=== PATIENT | male | born 1960 | race Caucasian/White ===

== ENCOUNTER 2017-06-06 02:43 | Inpatient (IN) | payer OTHER, MEDICAID ==
[2017-06-06] VITALS (8 sets, daily range): BP systolic 114–142; BP diastolic 60–82; PULSE 77–92; RESP 19–20; Ht 157.5 cm; Wt 68.7 kg
[~2017-06-06] VITALS: Ht 157.5 cm; Wt 68.7 kg
[~2017-06-06 02:43] MED LIST: ASPI-676; METF500T4; SIMV20TA2
[2017-06-06] MEDS ORDERED: NITROGLYCERIN 2% 1 GM OINT PKT TD STA (02:52)
[2017-06-06] MEDS ORDERED: ASPIRIN 81 MG TAB PO STA (02:52)
[2017-06-06] MEDS ORDERED: SOD CHLORIDE 0.9% 1,000 ML IV STA (02:52)
[2017-06-06] MEDS ORDERED: NITROGLYCERIN (SL) 0.4 MG TAB SL PRN ×2 (03:00→07:00)
[2017-06-06] MEDS ORDERED: LORAZEPAM 2 MG INJ ONE (03:22)
[2017-06-06] MEDS ORDERED: LORAZEPAM 2 MG INJ IV ONE (03:30)
[2017-06-06 03:32] LABS: BASOPHILS % 0.4 % (0.0-2.0); EOSINOPHILS # 0.2 10^3/ul (0.0-0.5); EOSINOPHILS % 1.9 % (0.0-7.0); HEMATOCRIT 41.2 % (42.0-52.0); HEMOGLOBIN 14.1 g/dl (14.0-18.0); LYMPHOCYTES # 4.7 10^3/ul (0.8-2.9); LYMPHOCYTES % 49.7 % (15.0-51.0); MEAN CORPUSCULAR HEMOGLOBIN 30.3 pg (29.0-33.0); MEAN CORPUSCULAR HGB CONC 34.2 g/dl (32.0-37.0); MEAN CORPUSCULAR VOLUME 88.4 fl (82.0-101.0); MEAN PLATELET VOLUME 9.3 fl (7.4-10.4); MONOCYTE # 0.7 10^3/ul (0.3-0.9); MONOCYTES % 7.1 % (0.0-11.0); NEUTROPHIL # 3.9 10^3/ul (1.6-7.5); NEUTROPHILS % 40.7 % (39.0-77.0); PLATELET COUNT 232 10^3/UL (140-415); RED BLOOD COUNT 4.66 10^6/ul (4.70-6.10); RED CELL DISTRIBUTION WIDTH 13.2 % (11.5-14.5); WHITE BLOOD COUNT 9.5 10^3/ul (4.8-10.8)
--- NOTE | 2017-06-06 03:50 | RADRPT ---
PROCEDURE: Chest. CLINICAL INDICATION: Chest pain. TECHNIQUE: Single frontal view of the chest was obtained. COMPARISON: 02/22/2013. FINDINGS: The cardiac silhouette is magnified. The aortic arch is calcified. There are increased interstitia l markings bilaterally. There is no pleural effusion. There is no pneumothorax. IMPRESSION: Bilateral increased interstitial markings could represent interstitial edema or chronic lung changes . Aortic atherosclerosis. .Roshan Clark MD, MD Date Time Electronically viewed and signed by .Roshan Clark MD, on 06/06/2017 03:49 .T/
[2017-06-06 03:54] LABS: INR 0.94; PARTIAL THROMBOPLASTIN TIME 25.3 Sec (25.0-35.0); PROTIME 12.6 Sec (12.2-14.2)
[2017-06-06 05:14] LABS: ANION GAP 26 (8-16); BLOOD UREA NITROGEN 21 mg/dl (7-20); CALCIUM 9.9 mg/dl (8.4-10.2); CARBON DIOXIDE 22 mmol/L (21-31); CHLORIDE 101 mmol/L (97-110); CREATININE 0.75 mg/dl (0.61-1.24); GLUCOSE 355 mg/dl (70-220); SODIUM 145 mmol/L (135-144)
--- NOTE | 2017-06-06 05:38 | ERA ---
ER Documentation Chief Complaint Date/Time DATE: 06/06/17 TIME: 05:35 Chief Complaint BEBA RA90 from home, palpitations, SOB HPI Patient is a 56-year-old male with seizures and diabetes who presents with shortness of breath and chest pain. He also has palpitations. It started 1 hour prior to arrival. The patient was brought in by ambulance. He did have a headache as well. Upon review of old medical records this is the patient's fourth visit to the ER since 2008. His primary doctor is Dr. Rivera. He was brought in by ambulance. ROS All systems reviewed and are negative except as per history of present illness. Medications Home Meds Reported Medications Simvastatin (Simvastatin) 20 Mg Tablet 02/22/13 Metformin* (Glucophage*) 500 Mg Tab 02/22/13 Metformin* (Glucophage*) 500 Mg Tab 02/22/13 Aspirin (Gaetano Child) 81 Mg Chew, daily 02/22/13 Allergies Allergies: Coded Allergies: No Known Allergy (Unverified , 03/05/14) PMhx/Soc History of Surgery: Yes (Toe amputation) Anesthesia Reaction: No Hx Neurological Disorder: No Hx Respiratory Disorders: No Hx Cardiac Disorders: No Hx Psychiatric Problems: No Hx Miscellaneous Medical Probl: Yes (diabetes, cholesterol, HTN.) Hx Alcohol Use: No Hx Substance Use: No Hx Tobacco Use: No FmHx Family History: No coronary disease Physical Exam Vitals Vital Signs Date Time Temp Pulse Resp B/P Pulse Ox O2 Delivery O2 Flow Rate FiO2 06/06/17 05:08 101 20 110/80 96 Nasal Cannula 06/06/17 03:55 116 27 111/67 99 Nasal Cannula 2.0 06/06/17 03:31 105 23 111/67 96 Nasal Cannula 2.0 06/06/17 03:31 Nasal Cannula 2 06/06/17 02:46 98.4 123 18 193/93 98 Physical Exam Const: Mild distress Head: Atraumatic Eyes: Normal Conjunctiva ENT: Normal External Ears, Nose and Mouth. Neck: Full range of motion..~ No meningismus. Resp: Clear to auscultation bilaterally Cardio: Regular rate and rhythm, no murmurs Abd: Soft, non tender, non distended. Normal bowel sounds Skin: No petechiae or rashes Back: No midline or flank tenderness Ext: No cyanosis, or edema Neur: Awake and alert, cranial nerves II through XII intact, strength is 5 out of 5 in all 4 extremities Psych: Normal Mood and Affect Result Diagram: 06/06/1730906/06/17309 Results 24 hrs Laboratory Tests Test 06/06/17 03:10 White Blood Count 9.510^3/ul Red Blood Count 4.6610^6/ul Hemoglobin 14.1g/dl Hematocrit 41.2% Mean Corpuscular Volume 88.4fl Mean Corpuscular Hemoglobin 30.3pg Mean Corpuscular Hemoglobin Concent 34.2g/dl Red Cell Distribution Width 13.2% Platelet Count 40741^3/UL Mean Platelet Volume 9.3fl Neutrophils % 40.7% Lymphocytes % 49.7% Monocytes % 7.1% Eosinophils % 1.9% Basophils % 0.4% Nucleated Red Blood Cells % 0.0/100WBC Neutrophils # 3.910^3/ul Lymphocytes # 4.710^3/ul Monocytes # 0.710^3/ul Eosinophils # 0.210^3/ul Basophils # 0.010^3/ul Nucleated Red Blood Cells # 0.010^3/ul Prothrombin Time 12.6Sec Prothrombin Time Ratio 1.0 INR International Normalized Ratio 0.94 Activated Partial Thromboplast Time 25.3Sec Sodium Level 145mmol/L Potassium Level 4.0mmol/L Chloride Level 101mmol/L Carbon Dioxide Level 22mmol/L Anion Gap 26 Blood Urea Nitrogen 21mg/dl Creatinine 0.75mg/dl Glucose Level 355mg/dl Calcium Level 9.9mg/dl Troponin I Pending Phenytoin (Dilantin) Level < 3.0ug/ml Current Medications Medications (Trade) Dose Ordered Sig/Tigre Route PRN Reason Start Time Stop Time Status Last Admin Dose Admin Sodium Chloride (NS) 1,000 ml @ 1,000 mls/hr Q1H STAT IV 06/06/17 02:52 06/06/17 03:51 DC 06/06/17 03:20 Aspirin (Aspirin) 162 mg ONCE STAT PO 06/06/17 02:52 06/06/17 02:53 DC 06/06/17 03:20 Nitroglycerin (Nitroglycerin 2% Oint) 1 inch ONCE STAT TD 06/06/17 02:52 06/06/17 02:53 DC 06/06/17 03:20 Nitroglycerin (Nitroglycerin (Sl Tab) 0.4 Mg) 1 tab Q5M UP TO 3 DOSES PRN SL CHEST PAIN 06/06/17 03:00 06/06/17 03:20 Lorazepam (Ativan) 2 mg ONCE ONCE IV 06/06/17 03:30 06/06/17 03:31 DC 06/06/17 03:25 Lorazepam (Ativan) 2 mg STK-MED ONCE .ROUTE 06/06/17 03:22 06/06/17 03:23 DC Procedures/MDM EKG #1 read by me: Rate/Rhythm: Sinus tachycardia rate of 116 Intervals: Normal Impression: Sinus tachycardia without ischemia EKG #2 read by me: Rate/Rhythm: Regular rate and rhythm at a rate of 102 Intervals: Normal Impression: Sinus tachycardia without ischemia PROCEDURE: Chest. CLINICAL INDICATION: Chest pain. TECHNIQUE: Single frontal view of the chest was obtained. COMPARISON: 02/22/2013. FINDINGS: The cardiac silhouette is magnified. The aortic arch is calcified. There are increased interstitial markings bilaterally. There is no pleural effusion. There is no pneumothorax. IMPRESSION: Bilateral increased interstitial markings could represent interstitial edema or chronic lung changes. Aortic atherosclerosis. .Roshan Clark MD, MD Date Time Electronically viewed and signed by .Roshan Clark MD, MD on 06/06/2017 03:49 Patient is a 56-year-old male who presents with chest pain shortness of breath as well as palpitations. Given his diabetes and age I did want to admit him to the hospital for acute coronary syndrome. He will need to be admitted to the panel team. The patient had elevated glucose of 355 in the emergency department. The patient also had a seizure while in the emergency department and was given 2 mg of IV Ativan to stop the seizure. He has a history of seizures as well. The patient will be admitted to a telemetry bed. Departure Diagnosis: Primary Impression: Chest pain Qualified Code: R07.9 - Chest pain, unspecified type Additional Impression: Seizure Condition: CASS Lira MD Jun 06, 2017 05:38
[2017-06-06 05:40] LABS: TROPONIN-I < 0.012 ng/ml (0.00-0.12)
[2017-06-06] MEDS ORDERED: ONDANSETRON 4 MG INJ IV PRN ×2 (06:00→07:00)
[2017-06-06] MEDS ORDERED: ACETAMINOPHEN 325 MG TAB PO PRN ×2 (06:00→07:00)
[2017-06-06] MEDS ORDERED: LORAZEPAM 2 MG INJ IV PRN ×2 (07:00→12:30)
[2017-06-06] MEDS ORDERED: BISACODYL (EC) 5 MG TAB PO PRN (07:00)
[2017-06-06] MEDS ORDERED: NACL 0.9% 3 ML SYG IV SCH (07:00)
[2017-06-06] MEDS ORDERED: DOCUSATE SODIUM 100 MG CAP PO PRN (07:00)
[2017-06-06] MEDS ORDERED: morphine 2 MG INJ IV PRN (07:00)
[2017-06-06] MEDS ORDERED: hydrALAzine 20 MG INJ IV PRN (09:00)
[2017-06-06] MEDS: ASPIRIN 81 MG TAB PO SCH (09:58)
[2017-06-06 10:06] LABS: TROPONIN-I 0.034 ng/ml (0.00-0.12)
[2017-06-06] MEDS: INSULIN ASPART [NOVOLOG] 3 ML PEN SC SCH ×4 (10:07→22:18)
[2017-06-06 10:23] LABS: CK-MB 1.36 ng/ml (0.0-2.4)
[2017-06-06] MEDS ORDERED: GLUCOSE GEL 15 GRAM TUBE PO PRN ×2 (12:30)
[2017-06-06] MEDS ORDERED: GLUCOSE GEL 15 GRAM TUBE BUCCAL PRN (12:30)
[2017-06-06] MEDS ORDERED: DEXTROSE 50% 50 ML SYRINGE IV PRN ×2 (12:30)
[2017-06-06] MEDS ORDERED: GLUCAGON 1 MG INJ IM PRN (12:30)
[2017-06-06] MEDS ORDERED: ATOR10TA65 PO (12:32)
[2017-06-06] MEDS ORDERED: ASPI81TA3 PO (12:32)
[2017-06-06] MEDS ORDERED: SITA1TAB PO (12:32)
[2017-06-06] MEDS ORDERED: LEVE500S8 PO (12:32)
[2017-06-06] MEDS ORDERED: PHEN200C3 PO (12:32)
[2017-06-06] MEDS ORDERED: DONE10TA7 PO (12:32)
--- NOTE | 2017-06-06 12:44 | CONS ---
Date/Time of Note Date/Time of Note DATE: 06/06/17 TIME: 12:36 Assessment/Plan Assessment/Plan Chief Complaint/Hosp Course 56 yo male with history of seizure d/o on Keppra 1500 mg BID and Dilantin 200 mg ER BID presents with breakthrough seizures. Recommendations: MRI Brain w/o contrast temporal lobe cuts continue Keppra 1500 mg BID, Dilantin 200 mg ER BID level is <3.0 patient is likely non-compliant with medications would recommend load of Fosphenytoin 1 gram x1 and continue current home dose infectious work up, maintain euglycemia, normotension will follow Problems: Consultation Date/Type/Reason Admit Date/Time Jun 06, 2017 at 05:48 Date of Consultation: Jun 06, 2017 Type of Consultation: Neurology Reason for Consultation eval for seizures Hx of Present Illness 56 yo male admitted with seizure activity, poor historian and unable to provide list of home medications or provide further history regarding seizures. Keppra seizure prophylaxis was initiated. No prior records available. Pills available: Dilantin 200 mg ER BID Keppra 1500 mg BID Sodium: 145 Glucose 355 on admission CK: 49 Exam/Review of Systems Vital Signs Vitals Vital Signs Date Time Temp Pulse Resp B/P Pulse Ox O2 Delivery O2 Flow Rate FiO2 06/06/17 12:30 92 06/06/17 11:48 98.2 20 121/60 97 06/06/17 07:28 Nasal Cannula 2.0 Exam awake and alert oriented to self, date not to hospital CN: ARACELIS, VFF, EOMI left facial asymmetry palate upgoing, right lateral tongue bite Motor: 5/5 UE and LE no drift in extremities Tone wnl Coordination no ataxia Reflexes 2+ throughout Results Result Diagram: 06/06/17 0310 06/06/17 0310 Results 24 hrs Laboratory Tests Test 06/06/17 03:10 06/06/17 09:15 06/06/17 10:04 06/06/17 12:16 White Blood Count 9.5 Red Blood Count 4.66 L Hemoglobin 14.1 Hematocrit 41.2 L Mean Corpuscular Volume 88.4 Mean Corpuscular Hemoglobin 30.3 Mean Corpuscular Hemoglobin Concent 34.2 Red Cell Distribution Width 13.2 Platelet Count 232 Mean Platelet Volume 9.3 Neutrophils % 40.7 Lymphocytes % 49.7 Monocytes % 7.1 Eosinophils % 1.9 Basophils % 0.4 Nucleated Red Blood Cells % 0.0 Neutrophils # 3.9 Lymphocytes # 4.7 H Monocytes # 0.7 Eosinophils # 0.2 Basophils # 0.0 Nucleated Red Blood Cells # 0.0 Prothrombin Time 12.6 Prothrombin Time Ratio 1.0 INR International Normalized Ratio 0.94 Activated Partial Thromboplast Time 25.3 Sodium Level 145 H Potassium Level 4.0 Chloride Level 101 Carbon Dioxide Level 22 Anion Gap 26 H Blood Urea Nitrogen 21 H Creatinine 0.75 Glucose Level 355 H Calcium Level 9.9 Troponin I < 0.012 0.034 Phenytoin (Dilantin) Level < 3.0 L Creatine Kinase 49 Creatine Kinase Index 2.8 Creatinine Kinase MB (Mass) 1.36 Bedside Glucose 226 H 203 Medications Medications Current Medications Diagnostic Test (Pha) (Accu-Chek) XX ; Start 06/07/17 at 02:00 Ondansetron HCl (Zofran Inj) 4 mg Q6H PRN IV NAUSEA AND/OR VOMITING; Start at 07:00 Nitroglycerin (Nitroglycerin (Sl Tab) 0.4 Mg) 1 tab Q5M PRN SL CHEST PAIN; Start 06/06/17 at 07:00 Acetaminophen (Tylenol Tab) 650 mg Q6H PRN PO PAIN LEVEL 1-3 OR FEVER; Start at 07:00 Morphine Sulfate (morphine) 2 mg Q4H PRN IV PAIN LEVEL 7-10; Start 06/06/17 at 07:00 Docusate Sodium (Colace) 100 mg Q12H PRN PO CONSTIPATION; Start 06/06/17 at 07: 00 Bisacodyl (Dulcolax) 5 mg DAILY PRN PO CONSTIPATION; Start 06/06/17 at 07:00 Pantoprazole (Protonix Iv) 40 mg DAILY@06 IV ; Start 06/07/17 at 06:00 Aspirin (Aspirin) 81 mg DAILY PO Last administered on 06/06/17t 09:58; Admin Dose 81 MG; Start 06/06/17 at 09:00 Hydralazine HCl (Apresoline) 10 mg Q6H PRN IV SBP>160; Start 06/06/17 at 09:00 Atorvastatin Calcium 20 mg 20 mg HS PO ; Start 06/06/17 at 21:00 Levetiracetam (Keppra 1,000mg/ 100ml (Pmx)) 100 ml @ 400 mls/hr Q12 IVPB ; Start 06/06/17 at 13:30 Lorazepam (Ativan) 1 mg Q2H PRN IV seizure; Start 06/06/17 at 12:30 Miscellaneous Information 1 ea NOTE XX ; Start 06/06/17 at 12:30 Glucose (Glutose) 15 gm Q15M PRN PO DECREASED GLUCOSE; Start 06/06/17 at 12:30 Glucose (Glutose) 22.5 gm Q15M PRN PO DECREASED GLUCOSE; Start 06/06/17 at 12: 30 Dextrose (D50w Syringe) 25 ml Q15M PRN IV DECREASED GLUCOSE; Start 06/06/17 at 12:30 Dextrose (D50w Syringe) 50 ml Q15M PRN IV DECREASED GLUCOSE; Start 06/06/17 at 12:30 Glucagon (Glucagen) 1 mg Q15M PRN IM DECREASED GLUCOSE; Start 06/06/17 at 12:30 Glucose (Glutose) 15 gm Q15M PRN BUCCAL DECREASED GLUCOSE; Start 06/06/17 at 12 :30 RENETTA TILLMAN MD Jun 06, 2017 12:44
[2017-06-06] MEDS ORDERED: FOSPHENYTOIN (PE) 1,000 MG in SOD CHLORIDE 0.9% 80 ML IVPB STA (12:50)
[2017-06-06] MEDS: LEVETIRACETAM 1000 MG (PMX) 100 ML IVPB SCH ×2 (14:22→22:16)
--- NOTE | 2017-06-06 15:34 | RADRPT ---
PROCEDURE: MR Brain without contrast. CLINICAL INDICATION: Seizures TECHNIQUE: A high resolution MRI of the brain was performed utilizing the following sequences: Sag ittal and axial T1 weighted, axial T2 weighted, axial FLAIR, coronal GRE, and axial diffusion weight ed with ADC mapping. Images were reviewed high-resolution PACS workstation. Coronal FLAIR and T1 3D SPGR sequences were also acquired. COMPARISON: None FINDINGS: No acute parenchymal hemorrhage, significant mass effect, or midline shift. No evidence of recent in farct. Scattered subcortical, deep, and periventricular white matter T2-weighted/FLAIR hyperintensi ties are nonspecific. The mesial temporal lobes demonstrate normal signal intensity and volume bilaterally. No evidence o f focal cortical thickening or indistinctness is identified. No evidence of focal cortical encephal omalacia. The ventricles are normal in size for age. Normal flow voids are visible in the proximal intracrania l arteries suggesting their patency. Mild paranasal sinus mucosal thickening. IMPRESSION: No acute intracranial abnormality or evidence of recent infarct. No evidence of mesial temporal sclerosis, cortical dysplasia or cortical encephalomalacia. If there remains suspicion for an epileptogenic focus, consider outpatient interictal PET imaging for furthe r evaluation. A few scattered signal changes in the cerebral white matter are nonspecific but may represent post t raumatic/post inflammatory change, a sequela of chronic headaches, microvascular disease, or other e tiologies. RPTAT: AA .Babar Christian MD, MD Date Time Electronically viewed and signed by .Babar Christian MD, MD on 06/06/2017 15:33 .T/
[2017-06-06 16:43] LABS: CREATINE KINASE 56 IU/L (23-200)
[2017-06-06 16:57] LABS: CK-MB 1.25 ng/ml (0.0-2.4); TROPONIN-I < 0.012 ng/ml (0.00-0.12)
[2017-06-06] MEDS ORDERED: ATORVASTATIN 20 MG TAB PO SCH (21:00)
[2017-06-06] MEDS ORDERED: FAMOTIDINE 20 MG TAB PO SCH (21:00)
[2017-06-06] MEDS: PHENYTOIN 100 MG CAP PO SCH (22:16)
--- NOTE | 2017-06-06 22:21 | RADRPT ---
Echocardiogram Report Patient Name: SALEEM TOVAR Gender: Male Date: 1960 Study Date: 06-Jun-2017 Business Test Analyst: Janelle Bradshaw [facility] Location: 5547 Ref. Physician: KEENA LUCERO Quality: Good Procedures: Transthoracic echocardiogram with complete 2D, M-Mode, and doppler examination. Indications: Chest Pain. 2D/M Mode Doppler Measurement Value Normal Ranges Measurement Value Normal Ranges LVIDd 2D 3.0 3.5 - 5.6 cm AV Peak [place] 1.2 m/sec LVIDs 2D 1.5 2.1 - 4.1 cm AV Peak PG 6.1 mmHg LVPWd 2D 1.4 0.6 - 1.1 cm LVOT Peak [place] 1.0 m/sec IVSd 2D 1.4 0.6 - 1.1 cm LVOT Peak PG 4.2 mmHg AoR Diam 2D 3.3 2.0 - 3.7 cm MV E Peak P[place]co 0.8 m/sec EDV 2D 33.9 cm3 MV A Peak [place] 0.7 m/sec ESV 2D 3.3 cm3 MV E/A 1.0 LA Dimen 2D 3.3 2.3 - 4.0 cm MV Decel Time 266 msec MV Decel [place] 3 MV E/A 1.0 TR Peak Pacheco 2.2 m/sec TR Peak PG 20.0 mmHg Findings Left Ventricle: Normal left ventricular systolic function. Normal left ventricular cavity size. Moderate concentric left ventricular hypertrophy. Ejection fraction is visually estimated at 65 %. Abnormal Diastolic Function. Right Ventricle: Normal right ventricular size. Normal right ventricular systolic function. Left Atrium: The left atrium is normal in size. Right Atrium: The right atrium is normal in size. Mitral Valve: Normal appearance of the mitral valve. Trace mitral regurgitation. Aortic Valve: Normal appearance of the aortic valve. No significant aortic stenosis or insufficiency. Tricuspid Valve: Normal appearance of the tricuspid valve. There is trace tricuspid regurgitation. Pulmonic Valve: Normal pulmonic valve appearance. Pericardium: Normal pericardium with no significant pericardial effusion. Aorta: Normal aortic root. IVC: Normal size and normal respiratory collapse consistent with normal right atrial pressure. Pulmonary Artery: Normal pulmonary artery size. Conclusions Normal left ventricular systolic function. Normal left ventricular cavity size. Moderate concentric left ventricular hypertrophy. Ejection fraction is visually estimated at 65 %. Abnormal Diastolic Function. Normal right ventricular size. Normal right ventricular systolic function. The left atrium is normal in size. The right atrium is normal in size. No significant valvular stenosis or regurgitation seen. Normal pericardium with no significant pericardial effusion. Electronically Signed By: Iain Stanford 06-Jun-2017 22:20:36 -0700 Patient Name: SALEEM TOVAR Study Date: 06-Jun-2017 [id number]
[2017-06-07] VITALS (10 sets, daily range): BP systolic 113–136; BP diastolic 59–78; PULSE 66–77; RESP 17–18
[2017-06-07] MEDS ORDERED: ACCU-CHEK XX SCH (02:00)
[2017-06-07] MEDS ORDERED: INSULIN ASPART [NOVOLOG] 3 ML PEN SC STA (02:14)
[2017-06-07] MEDS: morphine 4 MG/ML VIAL IV PRN ×2 (02:32→03:59)
[2017-06-07] MEDS ORDERED: PANTOPRAZOLE 40 MG INJ IV SCH (06:00)
[2017-06-07 08:16] LABS: BASOPHILS % 0.3 % (0.0-2.0); EOSINOPHILS # 0.1 10^3/ul (0.0-0.5); EOSINOPHILS % 1.1 % (0.0-7.0); HEMATOCRIT 37.3 % (42.0-52.0); LYMPHOCYTES # 1.9 10^3/ul (0.8-2.9); LYMPHOCYTES % 30.4 % (15.0-51.0); MEAN CORPUSCULAR HEMOGLOBIN 30.7 pg (29.0-33.0); MEAN CORPUSCULAR HGB CONC 34.9 g/dl (32.0-37.0); MEAN PLATELET VOLUME 9.5 fl (7.4-10.4); MONOCYTE # 0.5 10^3/ul (0.3-0.9); MONOCYTES % 8.4 % (0.0-11.0); NEUTROPHIL # 3.8 10^3/ul (1.6-7.5); NEUTROPHILS % 59.6 % (39.0-77.0); PLATELET COUNT 210 10^3/UL (140-415); RED BLOOD COUNT 4.24 10^6/ul (4.70-6.10); RED CELL DISTRIBUTION WIDTH 13.1 % (11.5-14.5); WHITE BLOOD COUNT 6.3 10^3/ul (4.8-10.8)
--- NOTE | 2017-06-07 08:19 | RADRPT ---
PROCEDURE: CT Brain without. CLINICAL INDICATION: Seizure. TECHNIQUE: A CT of the brain was performed on multidetector high-resolution CT scanner utilizing a xial sections from the skull base through the vertex without contrast. The scan was reviewed in sof t tissue brain and high frequency resolution bone algorithm windows. Images were reviewed on a high -resolution PACS workstation. One or more the following does reduction techniques were utilized: Aut omated exposure control, adjustment of the mA/ or kV according to patient's size, or use of iterativ e reconstruction technique. The exam CTDI = 43.48 mGy and the DLP = 810.25 mGy-cm. COMPARISON: Brain MRI 06/06/2017. FINDINGS: The ventricles and sulci are mildly prominent indicative of volume loss. Mild prominence of temporal horn of the right lateral ventricle is noted. There is no intracranial hemorrhage, mass effect or m idline shift. No abnormal intra-axial or extra-axial fluid collections are seen. The gayle/white mat ter differentiation is preserved. There are mild scattered foci of hypoattenuation in the white matter, which are nonspecific in etiol ogy but likely reflect chronic small vessel ischemic changes. There are mild intracranial vascular calcifications consistent with atherosclerosis. The visualized paranasal sinuses demonstrate mild sc attered mucosal thickening mainly in ethmoid air cells and maxillary sinuses. The left mastoid air c ells are underpneumatized. The right mastoid air cells are essentially clear. IMPRESSION: 1. No acute intracranial hemorrhage, transcortical infarction or mass effect. 2. Mild intracranial atherosclerosis. Mild white matter hypoattenuation foci which likely represen t chronic small vessel ischemic changes. 3. Mild generalized cerebral volume loss. RPTAT: UU .Tigist Hernandez MD, MD Date Time Electronically viewed and signed by .Tigist Hernandez MD, MD on 06/07/2017 08:19 .N/
[2017-06-07] MEDS: ASPIRIN 81 MG TAB PO SCH (08:29)
[2017-06-07] MEDS: PHENYTOIN 100 MG CAP PO SCH (08:30)
[2017-06-07] MEDS: INSULIN ASPART [NOVOLOG] 3 ML PEN SC SCH ×2 (08:34→12:30)
[2017-06-07 08:41] LABS: ALBUMIN/GLOBULIN RATIO 1.37; BILIRUBIN,INDIRECT 0.1 mg/dl (0-1.1); BILIRUBIN,TOTAL 0.1 mg/dl (0.2-1.3); CALCIUM 8.9 mg/dl (8.4-10.2); CHOL/HDL RATIO 4.8 RATIO; CREATININE 0.66 mg/dl (0.61-1.24); MAGNESIUM 1.7 mg/dl (1.7-2.5); POTASSIUM 4.3 mmol/L (3.5-5.1); TOTAL PROTEIN 6.9 g/dl (6.1-8.1)
[2017-06-07] MEDS ORDERED: LINAGLIPTIN 5 MG TABLET PO SCH (09:00)
[2017-06-07] MEDS ORDERED: DONEPEZIL 10 MG TAB PO SCH (09:00)
[2017-06-07 09:29] LABS: THYROID STIMULATING HORMONE 2.79 MIU/L (0.465-4.680)
[2017-06-07] MEDS: LEVETIRACETAM 1000 MG (PMX) 100 ML IVPB SCH (11:09)
--- NOTE | 2017-06-07 11:29 | CONS ---
Date/Time of Note Date/Time of Note DATE: 06/07/17 TIME: 11:27 Consult Date/Type/Reason Admit Date/Time Jun 06, 2017 at 05:48 Initial Consult Date 06/06/17 Type of Consultation: Neurology Reason for Consultation seizures Subjective no seizures overnight unclear if he has been compliant with Dilantin as level <0.3 Objective Vital Signs Date Time Temp Pulse Resp B/P Pulse Ox O2 Delivery O2 Flow Rate FiO2 06/07/17 08:18 66 06/07/17 07:47 98.7 17 117/61 99 06/06/17 08:20 Nasal Cannula 06/06/17 07:28 2.0 Intake and Output 06/06/17 06/06/17 06/07/17 15:00 23:00 07:00 Intake Total 1200 ml 600 ml Balance 1200 ml 600 ml Exam awake and alert oriented to self, date not to hospital CN: ARACELIS, VFF, EOMI left facial asymmetry palate upgoing, right lateral tongue bite Motor: 5/5 UE and LE no drift in extremities Tone wnl Coordination no ataxia Reflexes 2+ throughout Results/Medications Result Diagram: 06/07/1718 06/07/1718 Results 24 hrs Laboratory Tests Test 06/06/17 12:16 06/06/17 15:59 06/06/17 17:17 06/06/17 22:14 Bedside Glucose 203 202 269 H Creatine Kinase 56 Creatine Kinase Index 2.2 Creatinine Kinase MB (Mass) 1.25 Troponin I < 0.012 Test 06/07/17 02:02 06/07/17 07:18 06/07/17 08:02 Bedside Glucose 228 H 184 White Blood Count 6.3 # Red Blood Count 4.24 L Hemoglobin 13.0 L Hematocrit 37.3 L Mean Corpuscular Volume 88.0 Mean Corpuscular Hemoglobin 30.7 Mean Corpuscular Hemoglobin Concent 34.9 Red Cell Distribution Width 13.1 Platelet Count 210 Mean Platelet Volume 9.5 Neutrophils % 59.6 Lymphocytes % 30.4 Monocytes % 8.4 Eosinophils % 1.1 Basophils % 0.3 Nucleated Red Blood Cells % 0.0 Neutrophils # 3.8 Lymphocytes # 1.9 Monocytes # 0.5 Eosinophils # 0.1 Basophils # 0.0 Nucleated Red Blood Cells # 0.0 Sodium Level 143 Potassium Level 4.3 Chloride Level 106 Carbon Dioxide Level 26 Anion Gap 15 # Blood Urea Nitrogen 13 Creatinine 0.66 Glucose Level 190 # Hemoglobin A1c 7.9 H Calcium Level 8.9 Magnesium Level 1.7 Total Bilirubin 0.1 L Direct Bilirubin 0.00 Indirect Bilirubin 0.1 Aspartate Amino Transf (AST/SGOT) 30 Alanine Aminotransferase (ALT/SGPT) 65 Alkaline Phosphatase 158 H Total Protein 6.9 Albumin 4.0 Globulin 2.90 Albumin/Globulin Ratio 1.37 Triglycerides Level 135 Cholesterol Level 183 LDL Cholesterol, Calculated 118 HDL Cholesterol 38 Cholesterol/HDL Ratio 4.8 Thyroid Stimulating Hormone (TSH) 2.790 Medications Current Medications Diagnostic Test (Pha) (Accu-Chek) 1 ea 02 XX Last administered on 06/07/17 02: 21; Admin Dose 1 EA; Start 06/07/17 at 02:00 Ondansetron HCl (Zofran Inj) 4 mg Q6H PRN IV NAUSEA AND/OR VOMITING; Start at 07:00 Nitroglycerin (Nitroglycerin (Sl Tab) 0.4 Mg) 1 tab Q5M PRN SL CHEST PAIN; Start 06/06/17 at 07:00 Acetaminophen (Tylenol Tab) 650 mg Q6H PRN PO PAIN LEVEL 1-3 OR FEVER; Start at 07:00 Docusate Sodium (Colace) 100 mg Q12H PRN PO CONSTIPATION; Start 06/06/17 at 07: 00 Bisacodyl (Dulcolax) 5 mg DAILY PRN PO CONSTIPATION; Start 06/06/17 at 07:00 Aspirin (Aspirin) 81 mg DAILY PO Last administered on 06/07/17 08:29; Admin Dose 81 MG; Start 06/06/17 at 09:00 Hydralazine HCl (Apresoline) 10 mg Q6H PRN IV SBP>160; Start 06/06/17 at 09:00 Atorvastatin Calcium 20 mg 20 mg HS PO Last administered on 06/06/17 22:17; Admin Dose 20 MG; Start 06/06/17 at 21:00 Levetiracetam (Keppra 1,000mg/ 100ml (Pmx)) 100 ml @ 400 mls/hr Q12 IVPB Last administered on 06/07/17 11:09; Admin Dose 400 MLS/HR; Start 06/06/17 at 13:30 Lorazepam (Ativan) 1 mg Q2H PRN IV seizure; Start 06/06/17 at 12:30 Miscellaneous Information 1 ea NOTE XX ; Start 06/06/17 at 12:30 Glucose (Glutose) 15 gm Q15M PRN PO DECREASED GLUCOSE; Start 06/06/17 at 12:30 Glucose (Glutose) 22.5 gm Q15M PRN PO DECREASED GLUCOSE; Start 06/06/17 at 12: 30 Dextrose (D50w Syringe) 25 ml Q15M PRN IV DECREASED GLUCOSE; Start 06/06/17 at 12:30 Dextrose (D50w Syringe) 50 ml Q15M PRN IV DECREASED GLUCOSE; Start 06/06/17 at 12:30 Glucagon (Glucagen) 1 mg Q15M PRN IM DECREASED GLUCOSE; Start 06/06/17 at 12:30 Glucose (Glutose) 15 gm Q15M PRN BUCCAL DECREASED GLUCOSE; Start 06/06/17 at 12 :30 Donepezil HCl (Aricept) 10 mg DAILY PO Last administered on 06/07/17 08:43; Admin Dose 10 MG; Start 06/07/17 at 09:00 Linagliptin (Tradjenta) 5 mg DAILY PO Last administered on 06/07/17 08:30; Admin Dose 5 MG; Start 06/07/17 at 09:00 Famotidine (Pepcid) 20 mg HS PO Last administered on 06/06/17 22:17; Admin Dose 20 MG; Start 06/06/17 at 21:00 Phenytoin (Dilantin) 200 mg BID PO Last administered on 06/07/17 08:30; Admin Dose 200 MG; Start 06/06/17 at 21:00 Morphine Sulfate (morphine) 2 mg Q4H PRN IV PAIN LEVEL 7-10 Last administered on 06/07/17 02:32; Admin Dose 2 MG; Start 06/06/17 at 14:30 Assessment/Plan Chief Complaint/Hosp Course 56 yo male with history of seizure d/o on Keppra 1500 mg BID and Dilantin 200 mg ER BID presents with breakthrough seizures. Dilantin level subtherapeutic <0.3, likely non compliant. MRI Brain with chronic ischemic microvascular changes, nonspecific white matter disease no acute process. No mesial temporal sclerosis. Recommendations: continue Keppra 1500 mg BID, Dilantin 200 mg ER BID level is <3.0 patient is likely non-compliant with medications infectious work up, maintain euglycemia, normotension SW/ Warp Preparer to follow up and ensure patient has family support to help take his medications Problems: RENETTA TILLMAN MD Jun 07, 2017 11:29
--- NOTE | 2017-06-07 15:54 | PDOCDIS ---
Discharge Instructions CONDITION Patient Condition: Good HOME CARE INSTRUCTIONS: Special Diet: Diabetic diet ACTIVITY: Activity Restrictions: No Restrictions FOLLOW UP/APPOINTMENTS Follow-up Plan FOLLOW UP WITH YOUR PRIMARY CARE PHYSICIAN IN 1-2 WEEKS, FOLLOW UP WITH YOUR NEUROLOGIST PREETI SOW Jun 07, 2017 15:54
--- NOTE | 2017-06-07 16:05 | DS ---
Date/Time of Note Date/Time of Note DATE: 06/07/17 TIME: 15:55 Discharge Summary Admission/Discharge Info Admit Date/Time Jun 06, 2017 at 05:48 Discharge Date/Time June 07, 2017 Discharge Diagnosis 1. Seizures with breakthrough seizures secondary to noncompliance Patient advised on compliance, continue home meds 2. Atypical chest pain: ACS ruled out 3. Diabetes- continue home p.o. medications Patient Condition: Good Hospital Course Patient is a 56 yo male with history of seizure d/o on Keppra 1500 mg BID and Dilantin 200 mg ER BID presents with breakthrough seizures and chest pain. Patient's Dilantin level is subtherapeutic <0.3, likely non compliant. Patient had a MRI Brain with chronic ischemic microvascular changes, nonspecific white matter disease no acute process. No mesial temporal sclerosis. Patient was seen by neurology and recommendations were to continue home medications but to be compliant. ACS was ruled out and chest pain was atypical. 2D echo showed no significant findings. Patient is clear for DC per neurology. On the day of discharge patient's vitals, labs and physical exam are stable, patient had no acute complaints and questions were answered. Home Meds Reported Medications Aspirin* (Aspirin* Chew) 81 Mg Tab.chew, 81 MG PO DAILY, TAB.CHEW 06/06/17 Atorvastatin Calcium (Atorvastatin Calcium) 10 Mg Tablet, 10 MG PO DAILY, #30 TAB 06/06/17 Levetiracetam* (Levetiracetam*) 500 Mg/5 Ml Solution, 500 MG PO BID, ML 06/06/17 Donepezil* (Donepezil*) 10 Mg Tablet, 10 MG PO DAILY, #30 TAB 06/06/17 Phenytoin* Sodium Extended (Phenytoin* Sodium Extended) 200 Mg Capsule, 200 MG PO BID, CAP 06/06/17 Sitagliptin Phos/Metformin HCl (Janumet 50-500 mg Tablet) 1 Each Tablet, 1 EACH PO BID, TAB 06/06/17 Simvastatin (Simvastatin) 20 Mg Tablet 02/22/13 Metformin* (Glucophage*) 500 Mg Tab 02/22/13 Metformin* (Glucophage*) 500 Mg Tab 02/22/13 Aspirin (Gaetano Child) 81 Mg Chew, daily 02/22/13 Follow-up Plan Follow with PCP in 1-2 weeks and with neurologist Primary Care Provider Naima Rivera Time spent on discharge: > 30 minutes PREETI SOW Jun 07, 2017 16:05
--- NOTE | 2017-06-08 11:08 | EN ---
Date/Time of Note Date/Time of Note DATE: 06/08/17 TIME: 11:08 Event Note Medicine Medicine Event Note EEG reviewed by Dr. Russo : Normal EEG RENETTA TILLMAN MD Jun 08, 2017 11:08
--- NOTE | 2017-06-09 05:58 | PRO ---
DATE OF PROCEDURE: INDICATION: This is a 56-year-old male admitted with breakthrough seizures. CURRENT MEDICATIONS: 1. Keppra. 2. Dilantin. DESCRIPTION OF PROCEDURE: Utilizing a 16-channel EEG machine, cap scalp electrodes were applied in accordance with international 10-20 system. Cikxw-gr-iozlb, hurbc-ep-lio montages were displayed. Electrical impedances were measured and reported. During the resting stage, a posterior dominant rhythm for about 8- 9 hertz was seen bi-hemispherically. Photic stimulation had a good response. Hyperventilation was not performed. There was no focal lateralizing or epileptiform discharges identified. INTERPRETATION: This is a normal EEG. A normal EEG does not exclude seizure disorder. Please correlate clinically. Dictated By: Jazmine Russo MD /augustin/myles /Document#: [id number]
== END 2017-06-07 17:02 | disposition home or self-care (01) | DRG 101 ==
LOC: E/R 02:43 → MS4 05:48
PROVIDERS: ADMIT Family Medicine; ATTEND Family Medicine
DX: G40.909 Epilepsy, unspecified, not intractable, without status epilepticus (principal); E11.9 Type 2 diabetes mellitus without complications; Z91.14 Patient's other noncompliance with medication regimen; R07.89 Other chest pain
CPT/HCPCS: 36415; 70450; 70551; 71010; 80048; 80053; 80061; 80185; 82550; 82553; 82962; 83036; 83735; 84443; 84484; 85025; 85610; 85730; 93005; 93306; 95819; 96374; J1815; J1953; J2060; J2270; J7030; Q2009

== ENCOUNTER 2017-09-19 09:08 | Emergency (ER) | payer OTHER, MEDICAID ==
[~2017-09-19] VITALS: Wt 75.0 kg
[~2017-09-19 09:08] MED LIST changes: +ASPI81TA3 PO; +ATOR10TA65 PO; +DONE10TA7 PO; +LEVE500S8 PO; +PHEN200C3 PO; +SITA1TAB PO
[2017-09-19] MEDS ORDERED: ASPIRIN 325 MG TAB PO STA (09:37)
[2017-09-19] MEDS ORDERED: SOD CHLORIDE 0.9% 1,000 ML IV STA (09:37)
[2017-09-19] MEDS ORDERED: ONDANSETRON 4 MG INJ IV STA (09:40)
[2017-09-19] MEDS: HYDROmorphONE 1 MG/ML SYG IV STA ×2 (09:40→10:14)
[2017-09-19 09:59] LABS: BASOPHILS % 0.2 % (0.0-2.0); EOSINOPHILS # 0.1 10^3/ul (0.0-0.5); EOSINOPHILS % 0.5 % (0.0-7.0); HEMATOCRIT 41.9 % (42.0-52.0); HEMOGLOBIN 15.2 g/dl (14.0-18.0); LYMPHOCYTES # 3.2 10^3/ul (0.8-2.9); LYMPHOCYTES % 26.8 % (15.0-51.0); MEAN CORPUSCULAR HEMOGLOBIN 31.4 pg (29.0-33.0); MEAN CORPUSCULAR HGB CONC 36.3 g/dl (32.0-37.0); MEAN CORPUSCULAR VOLUME 86.6 fl (82.0-101.0); MEAN PLATELET VOLUME 9.1 fl (7.4-10.4); MONOCYTE # 0.6 10^3/ul (0.3-0.9); NEUTROPHILS % 67.2 % (39.0-77.0); PLATELET COUNT 254 10^3/UL (140-415); RED BLOOD COUNT 4.84 10^6/ul (4.70-6.10); RED CELL DISTRIBUTION WIDTH 12.2 % (11.5-14.5); WHITE BLOOD COUNT 11.9 10^3/ul (4.8-10.8)
[2017-09-19 10:16] LABS: ALANINE AMINOTRANSFERASE 79 IU/L (13-69); ALBUMIN 4.4 g/dl (3.3-4.9); ALBUMIN/GLOBULIN RATIO 1.18; ALKALINE PHOSPHATASE 248 IU/L (42-121); ANION GAP 21 (8-16); ASPARTATE AMINO TRANSFERASE 42 IU/L (15-46); BILIRUBIN,INDIRECT 0.1 mg/dl (0-1.1); BILIRUBIN,TOTAL 0.1 mg/dl (0.2-1.3); BLOOD UREA NITROGEN 13 mg/dl (7-20); CALCIUM 9.3 mg/dl (8.4-10.2); CARBON DIOXIDE 24 mmol/L (21-31); CHLORIDE 103 mmol/L (97-110); CREATININE 0.68 mg/dl (0.61-1.24); GLUCOSE 265 mg/dl (70-220); POTASSIUM 3.6 mmol/L (3.5-5.1); SODIUM 144 mmol/L (135-144); TOTAL PROTEIN 8.1 g/dl (6.1-8.1)
[2017-09-19 10:17] LABS: INR 0.95; PROTIME 12.7 Sec (12.2-14.2)
[2017-09-19 10:18] LABS: PARTIAL THROMBOPLASTIN TIME 25.6 Sec (25.0-35.0)
[2017-09-19 10:21] LABS: ACETAMINOPHEN < 10.0 ug/ml (10.0-30.0); SALICYLATE < 1.0 mg/dl (5.0-30.0)
[2017-09-19] MEDS ORDERED: LORAZEPAM 2 MG INJ ONE (10:22)
[2017-09-19 10:28] LABS: B-TYPE NATRIURETIC PEPTIDE 36 PG/ML (0-125)
[2017-09-19 10:35] LABS: TROPONIN-I < 0.012 ng/ml (0.00-0.12)
[2017-09-19 10:59] LABS: ADD UMIC YES; UR ASCORBIC ACID NEGATIVE (NEGATIVE); UR BILIRUBIN (Dip) NEGATIVE (NEGATIVE); UR BLOOD (Dip) NEGATIVE (NEGATIVE); UR CLARITY CLEAR (CLEAR); UR COLOR STRAW (YELLOW); UR GLUCOSE (Dip) 3+ mg/dL (NEGATIVE); UR KETONES (Dip) NEGATIVE (NEGATIVE); UR LEUKOCYTE ESTERASE (Dip) NEGATIVE Leu/ul (NEGATIVE); UR NITRITE (Dip) NEGATIVE (NEGATIVE); UR RBC 4 /HPF (0-5); UR SPECIFIC GRAVITY (Dip) 1.009 (1.003-1.030); UR TOTAL PROTEIN (Dip) 2+ mg/dl (NEGATIVE); UR UROBILINOGEN (Dip) NEGATIVE (NEGATIVE)
[2017-09-19] MEDS ORDERED: PHENYTOIN 1,000 MG in SOD CHLORIDE 0.9% 100 ML IV ONE (11:00)
[2017-09-19] MEDS ORDERED: LORAZEPAM 2 MG INJ IV ONE (11:00)
[2017-09-19] MEDS ORDERED: SOD CHLORIDE 0.9% 100 ML ONE (11:08)
[2017-09-19] MEDS ORDERED: IOHEXOL 100 ML ONE (11:08)
[2017-09-19 11:22] LABS: BARBITURATES Negative (NEGATIVE); BENZODIAZEPINES Negative (NEGATIVE); CANNABINOIDS Negative (NEGATIVE); COCAINE Negative (NEGATIVE); OPIATES Negative (NEGATIVE)
--- NOTE | 2017-09-19 11:30 | RADRPT ---
PROCEDURE: CT Brain without contrast. CLINICAL INDICATION: Headache. TECHNIQUE: A CT of the brain was performed on multidetector high-resolution CT scanner utilizing a xial sections from the skull base through the vertex without contrast. The scan was reviewed in sof t tissue brain and high frequency resolution bone algorithm windows. Images were reviewed on a high -resolution PACS workstation. One or more the following does reduction techniques were utilized: Aut omated exposure control, adjustment of the mA/ or kV according to patient's size, or use of iterativ e reconstruction technique. The exam CTDI = 44.11 mGy and the DLP = 720.23 mGy-cm. DICOM images are available. COMPARISON: Brain CT 06/07/2017. Brain MRI 06/06/2017. FINDINGS: The ventricles and sulci are mildly prominent indicative of volume loss. There is no intracranial h emorrhage, mass effect or midline shift. No abnormal intra-axial or extra-axial fluid collections a re seen. The gayle/white matter differentiation is preserved. There are mild scattered foci of hypoattenuation in the white matter, which are nonspecific in etiol ogy but likely reflect chronic small vessel ischemic changes. There are mild intracranial vascular calcifications consistent with atherosclerosis. The visualized paranasal sinuses demonstrate mild sc attered mucosal thickening or pronounced in ethmoid air cells with focal opacification with mucoid s ecretion in the posterior left ethmoid air cells. The right mastoid air cells are essentially clear. The left mastoid air cells are underpneumatized. IMPRESSION: 1. No acute intracranial hemorrhage, transcortical infarction or mass effect. 2. Mild intracranial atherosclerosis and chronic small vessel ischemic changes. 3. Mild generalized cerebral volume loss. RPTAT: HFN .Tigist Hernandez MD, MD Date Time Electronically viewed and signed by .Tigist Hernandez MD, MD on 09/19/2017 11:29 .N/
--- NOTE | 2017-09-19 11:38 | RADRPT ---
PROCEDURE: CTA Chest and pulmonary angiogram. CLINICAL INDICATION: Chest pain and shortness of breath. TECHNIQUE: CT scan of the chest and CT pulmonary angiogram was performed on a multidetector high-r esolution CT scanner. High-resolution thin slice coronal and sagittal imaging was obtained from the axial source images. 3-D volumetric rendered post processing was performed as well. The patient w as examined following the uncomplicated intravenous administration of IV contrast. The images were r eviewed on a PACS workstation. The total exam CTDI equals 56 mGy, and the total exam DLP equals 486. 4 mGy-cm. One or more of the following dose reduction techniques were used: Automated exposure control. Adjustment of the mA and/or kV according to patient size. Use of iterative reconstruction technique. DICOM images are available. COMPARISON: None FINDINGS: CT chest: The trachea is midline. Thyroid gland is unremarkable. There is no significant axillary lymphadenopa thy. No significant mediastinal or hilar lymphadenopathy. The aorta demonstrates atherosclerotic calcifications. Pulmonary arterial trunk is normal size. No e vidence of acute pulmonary emboli. Heart size is mildly enlarged. There is no significant pericardia l effusion. Patchy right upper lobe air space disease is noted. There is bilateral lower lobe atelectasis. No pl eural effusions. Airways are patent. The visualized upper abdominal organs appear to be within normal limits. The visualized osseous structures appears to be within normal limits. IMPRESSION: 1. No evidence of acute pulmonary emboli. No evidence of aortic aneurysm or dissection. Mild cardiom egaly. 2. Mild patchy right upper lobe air space disease, cannot exclude early infectious or inflammatory p rocess in the appropriate clinical setting. 3. Bilateral lower lobe atelectasis. No pleural effusions. Remaining lungs are clear. RPTAT: AARR Physician Azar Date Time Electronically viewed and signed by Physician Azar on 09/19/2017 11:38 YANDEL/
[2017-09-19] MEDS ORDERED: PHEN200C PO (13:08)
[2017-09-19] MEDS ORDERED: AZIT250T94 PO (13:20)
--- NOTE | 2017-09-19 13:20 | ERD ---
ER Documentation Chief Complaint Chief Complaint Possible seizure HPI This is a 56-year-old male with a history of seizure disorder and noncompliance with medication who is here for possible seizure. The patient lives alone and was found by his landlord with some confusion this afternoon. On arrival the patient is groggy and confused in his a bit tangential when questioning. The patient states he has chest pain shortness of breath, has a headache, has pain but cannot say where. He was very groggy and difficult to keep awake. He is very confused. He will not look at me or track me. He will cooperate with the exam W/ basic commands. ROS All systems reviewed and are negative except as per history of present illness. Medications Home Meds Active Scripts Phenytoin* Sodium Extended (Dilantin*) 200 Mg Capsule, 200 MG PO BID, #90 CAP Prov:DAMARIS CLARKE DO 09/19/17 Reported Medications Aspirin* (Aspirin* Chew) 81 Mg Tab.chew, 81 MG PO DAILY, TAB.CHEW 06/06/17 Atorvastatin Calcium (Atorvastatin Calcium) 10 Mg Tablet, 10 MG PO DAILY, #30 TAB 06/06/17 Levetiracetam* (Levetiracetam*) 500 Mg/5 Ml Solution, 500 MG PO BID, ML 06/06/17 Donepezil* (Donepezil*) 10 Mg Tablet, 10 MG PO DAILY, #30 TAB 06/06/17 Phenytoin* Sodium Extended (Phenytoin* Sodium Extended) 200 Mg Capsule, 200 MG PO BID, CAP 06/06/17 Sitagliptin Phos/Metformin HCl (Janumet 50-500 mg Tablet) 1 Each Tablet, 1 EACH PO BID, TAB 06/06/17 Simvastatin (Simvastatin) 20 Mg Tablet 02/22/13 Metformin* (Glucophage*) 500 Mg Tab 02/22/13 Metformin* (Glucophage*) 500 Mg Tab 02/22/13 Aspirin (Gaetano Child) 81 Mg Chew, daily 02/22/13 Allergies Allergies: Coded Allergies: No Known Allergy (Unverified , 03/05/14) PMhx/Soc History of Surgery: Yes (Right big toe amputation) Anesthesia Reaction: No Hx Neurological Disorder: Yes (seizures) Hx Respiratory Disorders: No Hx Cardiac Disorders: Yes (htn) Hx Psychiatric Problems: Yes Hx Miscellaneous Medical Probl: No (dm) Hx Alcohol Use: No Hx Substance Use: No Hx Tobacco Use: No Smoking Status: Never smoker FmHx Family History: No coronary disease Physical Exam Vitals Vital Signs Date Time Temp Pulse Resp B/P Pulse Ox O2 Delivery O2 Flow Rate FiO2 09/19/17 10:10 112 20 186/89 99 Room Air 09/19/17 09:40 Nasal Cannula 2 09/19/17 09:11 97.8 125 24 162/92 100 Physical Exam Const: Well-developed, well-nourished Head: Atraumatic, normocephalic Eyes: Normal Conjunctiva, PERRLA, EOMI, normal sclera, no nystagmus ENT: Normal External Ears, Nose and Mouth, moist mucus membranes. Neck: Full range of motion. No meningismus, no lymphadenopathy. Resp: Clear to auscultation bilaterally, no wheezing, rhonchi, rales Cardio: Tachycardia, no murmurs, S1 S2 present] Abd: Soft, non tender x 4, non distended. Normal bowel sounds, no guarding or rebound, no pulsitile abdominal masses or bruits Skin: No petechiae or rashes, no ecchymosis , no maculopapular rash Back: No midline or flank tenderness Ext: No cyanosis, or edema, FROM x 4, normal inspection, neurovascularly intact x 4 Neur: Groggy but arousable and follows basic commands, STR 5/5 x 4, sensation intact x 4, no focal findings, cerebellum intact Psych: Unable to obtain Result Diagram: 09/19/1745 09/19/17 0945 Results 24 hrs Laboratory Tests Test 09/19/17 09:45 White Blood Count 11.910^3/ul Red Blood Count 4.8410^6/ul Hemoglobin 15.2g/dl Hematocrit 41.9% Mean Corpuscular Volume 86.6fl Mean Corpuscular Hemoglobin 31.4pg Mean Corpuscular Hemoglobin Concent 36.3g/dl Red Cell Distribution Width 12.2% Platelet Count 52132^3/UL Mean Platelet Volume 9.1fl Neutrophils % 67.2% Lymphocytes % 26.8% Monocytes % 5.0% Eosinophils % 0.5% Basophils % 0.2% Nucleated Red Blood Cells % 0.0/100WBC Neutrophils # 8.010^3/ul Lymphocytes # 3.210^3/ul Monocytes # 0.610^3/ul Eosinophils # 0.110^3/ul Basophils # 0.010^3/ul Nucleated Red Blood Cells # 0.010^3/ul Prothrombin Time 12.7Sec Prothrombin Time Ratio 1.0 INR International Normalized Ratio 0.95 Activated Partial Thromboplast Time 25.6Sec Urine Color STRAW Urine Clarity CLEAR Urine pH 7.0 Urine Specific [place] 1.009 Urine Ketones NEGATIVEmg/dL Urine Nitrite NEGATIVEmg/dL Urine Bilirubin NEGATIVEmg/dL Urine Urobilinogen NEGATIVEmg/dL Urine Leukocyte Esterase NEGATIVELeu/ul Urine Microscopic RBC 4/HPF Urine Microscopic WBC 0/HPF Urine Hemoglobin NEGATIVEmg/dL Urine Glucose 3+mg/dL Urine Total Protein 2+mg/dl Sodium Level 144mmol/L Potassium Level 3.6mmol/L Chloride Level 103mmol/L Carbon Dioxide Level 24mmol/L Anion Gap 21 Blood Urea Nitrogen 13mg/dl Creatinine 0.68mg/dl Glucose Level 265mg/dl Calcium Level 9.3mg/dl Total Bilirubin 0.1mg/dl Direct Bilirubin 0.00mg/dl Indirect Bilirubin 0.1mg/dl Aspartate Amino Transf (AST/SGOT) 42IU/L Alanine Aminotransferase (ALT/SGPT) 79IU/L Alkaline Phosphatase 248IU/L Troponin I < 0.012ng/ml B-Type Natriuretic Peptide 36PG/ML Total Protein 8.1g/dl Albumin 4.4g/dl Globulin 3.70g/dl Albumin/Globulin Ratio 1.18 Salicylates Level < 1.0mg/dl Urine Opiates Screen Negative Acetaminophen Level < 10.0ug/ml Urine Barbiturates Negative Urine Amphetamines Screen Negative Urine Benzodiazepines Screen Negative Urine Cocaine Screen Negative Urine Cannabinoids Negative Current Medications Medications (Trade) Dose Ordered Sig/Tigre Route PRN Reason Start Time Stop Time Status Last Admin Dose Admin Sodium Chloride (NS) 1,000 ml @ 1,000 mls/hr Q1H STAT IV 09/19/17 09:37 09/19/17 10:36 DC 09/19/17 10:09 Aspirin (Aspirin) 325 mg ONCE STAT PO 09/19/17 09:37 09/19/17 09:41 DC 09/19/17 10:09 Hydromorphone HCl (Dilaudid) 1 mg ONCE STAT IV 09/19/17 09:40 09/19/17 09:43 DC 09/19/17 09:40 Ondansetron HCl (Zofran Inj) 4 mg ONCE STAT IV 09/19/17 09:40 09/19/17 09:43 DC 09/19/17 10:13 Lorazepam 1 mg 1 mg ONCE ONCE IV 09/19/17 11:00 09/19/17 11:01 DC 09/19/17 10:25 Phenytoin/Sodium Chloride (Dilantin/NS) 120 ml @ 240 mls/hr ONCE ONCE IV 09/19/17 11:00 09/19/17 11:29 DC 09/19/17 11:39 IV Flush 10 ml 10 ml STK-MED ONCE .ROUTE 09/19/17 11:08 09/19/17 11:09 DC Sodium Chloride 100 ml @ ud STK-MED ONCE .ROUTE 09/19/17 11:08 09/19/17 11:09 DC Iohexol (Omnipaque) 100 ml @ ud STK-MED ONCE .ROUTE 09/19/17 11:08 09/19/17 11:09 DC Procedures/MDM EKG: Rate/Rhythm: Sinus tachycardia heart rate 121 QRS, ST, QT: NORMAL MN, QRS, QT] Impression: Sinus tachycardia PROCEDURE: CT Brain without contrast. CLINICAL INDICATION: Headache. TECHNIQUE: A CT of the brain was performed on multidetector high-resolution CT scanner utilizing axial sections from the skull base through the vertex without contrast. The scan was reviewed in soft tissue brain and high frequency resolution bone algorithm windows. Images were reviewed on a high- resolution PACS workstation. One or more the following does reduction techniques were utilized: Automated exposure control, adjustment of the mA/ or kV according to patient's size, or use of iterative reconstruction technique. The exam CTDI = 44.11 mGy and the DLP = 720.23 mGy-cm. DICOM images are available. COMPARISON: Brain CT 06/07/2017. Brain MRI 06/06/2017. FINDINGS: The ventricles and sulci are mildly prominent indicative of volume loss. There is no intracranial hemorrhage, mass effect or midline shift. No abnormal intra- axial or extra-axial fluid collections are seen. The gayle/white matter differentiation is preserved. There are mild scattered foci of hypoattenuation in the white matter, which are nonspecific in etiology but likely reflect chronic small vessel ischemic changes. There are mild intracranial vascular calcifications consistent with atherosclerosis. The visualized paranasal sinuses demonstrate mild scattered mucosal thickening or pronounced in ethmoid air cells with focal opacification with mucoid secretion in the posterior left ethmoid air cells. The right mastoid air cells are essentially clear. The left mastoid air cells are underpneumatized. IMPRESSION: 1. No acute intracranial hemorrhage, transcortical infarction or mass effect. 2. Mild intracranial atherosclerosis and chronic small vessel ischemic changes. 3. Mild generalized cerebral volume loss. RPTAT: HFN .Tigist Hernandez MD, MD Date Time Electronically viewed and signed by .Tigist Hernandez MD, MD on 09/19/2017 11: 29 .N/ CC: DAMARIS CLARKE DO PROCEDURE: CTA Chest and pulmonary angiogram. CLINICAL INDICATION: Chest pain and shortness of breath. TECHNIQUE: CT scan of the chest and CT pulmonary angiogram was performed on a multidetector high-resolution CT scanner. High-resolution thin slice coronal and sagittal imaging was obtained from the axial source images. 3-D volumetric rendered post processing was performed as well. The patient was examined following the uncomplicated intravenous administration of IV contrast. The images were reviewed on a PACS workstation. The total exam CTDI equals 56 mGy, and the total exam DLP equals 486.4 mGy-cm. One or more of the following dose reduction techniques were used: Automated exposure control. Adjustment of the mA and/or kV according to patient size. Use of iterative reconstruction technique. DICOM images are available. COMPARISON: None FINDINGS: CT chest: The trachea is midline. Thyroid gland is unremarkable. There is no significant axillary lymphadenopathy. No significant mediastinal or hilar lymphadenopathy. The aorta demonstrates atherosclerotic calcifications. Pulmonary arterial trunk is normal size. No evidence of acute pulmonary emboli. Heart size is mildly enlarged. There is no significant pericardial effusion. Patchy right upper lobe air space disease is noted. There is bilateral lower lobe atelectasis. No pleural effusions. Airways are patent. The visualized upper abdominal organs appear to be within normal limits. The visualized osseous structures appears to be within normal limits. IMPRESSION: 1. No evidence of acute pulmonary emboli. No evidence of aortic aneurysm or dissection. Mild cardiomegaly. 2. Mild patchy right upper lobe air space disease, cannot exclude early infectious or inflammatory process in the appropriate clinical setting. 3. Bilateral lower lobe atelectasis. No pleural effusions. Remaining lungs are clear. RPTAT: AARR Divya Cardenas Physician Date Time Electronically viewed and signed by Divya Cardenas Physician on 09/19/2017 11:38 JL/ CC: DAMARIS CLARKE DO Patient had a general tonic-clonic seizure while here lasting about a minute. He is given Ativan and the seizure stopped. After reevaluation the patient's heart rate is now 94. The patient is much more awake alert and coherent. I feel the patient was postictal when I first saw him. The patient says he is taking Keppra but says that he has been forgetting to take his Dilantin. Patient had already gotten a Dilantin load here so I cannot check a level at this point. Patient says he has not had a cough there is some patchy airspace disease on his CAT scan. We will cover him with some antibiotics. The patient says he is taking his Keppra as he is told has not missed any doses Departure Diagnosis: Primary Impression: Seizure Condition: Stable Patient Instructions: Seizure, Recurrent [Adult] DAMARIS CLARKE DO Sep 19, 2017 13:19
[2017-09-19] MEDS ORDERED: CEFTRIAXONE 1 GM/50 ML (PMX) 50 ML IVPB ONE (13:30)
[2017-09-19] MEDS ORDERED: LEVE100018 PO (15:27)
[2017-09-19] MEDS ORDERED: LANT3I SC (15:28)
[2017-09-19] MEDS ORDERED: SITA1TAB5 PO (15:28)
[2017-09-19] MEDS ORDERED: INSU200I SQ (15:29)
[2017-09-19 16:22] VITALS: BP 114/68; PULSE 80; RESP 18
== END 2017-09-19 16:28 | disposition home or self-care (01) ==
LOC: E/R 09:08
DX: G40.909 Epilepsy, unspecified, not intractable, without status epilepticus (principal); I10 Essential (primary) hypertension; E11.9 Type 2 diabetes mellitus without complications; R07.9 Chest pain, unspecified; Z79.82 Long term (current) use of aspirin; Z79.84 Long term (current) use of oral hypoglycemic drugs
CPT/HCPCS: 36415; 70450; 71275; 80053; 80306; 80307; 81001; 83880; 84484; 85025; 85610; 85730; 93005; 96374; 96375; 99285; J0696; J1165; J1170; J2060; J2405; J7030; Q9967

== ENCOUNTER 2018-11-16 01:46 | Observation (INO) | payer OTHER, MEDICAID ==
[2018-11-16] VITALS (8 sets, daily range): BP systolic 100–123; BP diastolic 61–70; PULSE 69–80; RESP 12–22; Ht 167.6 cm; Wt 64.8 kg
[~2018-11-16] VITALS: Ht 167.6 cm; Wt 64.8 kg
[~2018-11-16 01:46] MED LIST changes: -ASPI81TA3 PO; +AZIT250T PO; +INSU200I SQ; +LANT3I SC; +LEVE100018 PO; -LEVE500S8 PO; -METF500T4; +PHEN200C PO; -PHEN200C3 PO; -SIMV20TA2; -SITA1TAB PO; +SITA1TAB5 PO
--- NOTE | 2018-11-16 05:58 | ERD ---
ER Documentation Chief Complaint Chief Complaint CHEST PAIN X'S 1 DAY HPI 49-year-old male with complaints of chest pain for the past 1 day. Pain is mild to moderate intensity no exacerbating relieving factors. Pain is mild to mode rate intensity. No nausea no vomiting fevers no chills. No other current complaints. ROS All systems reviewed and are negative except as per history of present illness. Medications Home Meds Reported Medications Insulin Lispro (Humalog Kwikpen) 200 Unit/1 Ml Insuln.pen, 10 UNIT SQ TID, EA 09/19/17 Insulin Glargine* (Lantus*) 100 Unit/Ml Soln, 18 UNIT SC QHS, #1 VIAL 09/19/17 Atorvastatin Calcium (Atorvastatin Calcium) 10 Mg Tablet, 10 MG PO DAILY, #30 TAB 06/06/17 Donepezil* (Donepezil*) 10 Mg Tablet, 10 MG PO DAILY, #30 TAB 06/06/17 Aspirin (Gaetano Child) 81 Mg Chew, daily 02/22/13 Discontinued Reported Medications Sitagliptin Phos/Metformin HCl (Janumet 50-1,000 mg Tablet) 1 Each Tablet, 1 EACH PO BID, TAB 09/19/17 Levetiracetam* (Keppra*) 1,000 Mg Tablet, 1000 MG PO BID, TAB 09/19/17 Discontinued Scripts Azithromycin* (Zithromax*) 250 Mg Tablet, 250 MG PO .[place] DIRECTED, #6 TAB TAKE 500 MG (2 TABS) THE FIRST DAY THEN 250 MG (1 TAB) DAYS 2-5 Prov:MARIA GUADLAUPE CLARKESTSHENG Ramos DO 09/19/17 Phenytoin* Sodium Extended (Dilantin*) 200 Mg Capsule, 200 MG PO BID, #90 CAP Prov:LEKKOS,APOSTOLOS A. DO 09/19/17 Allergies Allergies: Coded Allergies: No Known Allergy (Unverified , 11/16/18) PMhx/Soc History of Surgery: Yes (R Big Toe Amputation) Anesthesia Reaction: No Hx Neurological Disorder: Yes (Seizure) Hx Respiratory Disorders: No Hx Cardiac Disorders: Yes (HTN) Hx Psychiatric Problems: No Hx Miscellaneous Medical Probl: Yes (DM,Nephrolithiasis) Hx Alcohol Use: No Hx Substance Use: No Hx Tobacco Use: No Smoking Status: Never smoker Physical Exam Vitals Vital Signs Date Temp Pulse Resp B/P (MAP) Pulse Ox O2 O2 Flow FiO2 Time Delivery Rate 11/16/18 96.2 98 20 140/70 99 02:00 (93) Physical Exam Const: No acute distress Head: Atraumatic Eyes: Normal Conjunctiva ENT: Normal External Ears, Nose and Mouth. Neck: Full range of motion. No meningismus. Resp: Clear to auscultation bilaterally Cardio: Regular rate and rhythm, no murmurs Abd: Soft, non tender, non distended. Normal bowel sounds Skin: No petechiae or rashes Back: No midline or flank tenderness Ext: No cyanosis, or edema Neur: Awake and alert Psych: Normal Mood and Affect Result Diagram: 11/16/1845011/16/18450 Results 24 hrs Laboratory Tests Test 11/16/18 04:50 11/16/18 04:51 Bedside Glucose 208 mg/dL White Blood Count 6.6 10^3/ul Red Blood Count 4.64 10^6/ul Hemoglobin 14.5 g/dl Hematocrit 39.9 % Mean Corpuscular Volume 86.0 fl Mean Corpuscular Hemoglobin 31.3 pg Mean Corpuscular Hemoglobin Concent 36.3 g/dl Red Cell Distribution Width 12.4 % Platelet Count 216 10^3/UL Mean Platelet Volume 9.4 fl Immature Granulocytes % 0.200 % Neutrophils % 66.8 % Lymphocytes % 24.6 % Monocytes % 6.8 % Eosinophils % 1.1 % Basophils % 0.5 % Nucleated Red Blood Cells % 0.0 /100WBC Immature Granulocytes # 0.010 10^3/ul Neutrophils # 4.4 10^3/ul Lymphocytes # 1.6 10^3/ul Monocytes # 0.5 10^3/ul Eosinophils # 0.1 10^3/ul Basophils # 0.0 10^3/ul Nucleated Red Blood Cells # 0.0 10^3/ul Prothrombin Time 12.1 Sec Prothrombin Time Ratio 0.9 INR International Normalized Ratio 0.89 Activated Partial Thromboplast Time 24.8 Sec Sodium Level 140 mmol/L Potassium Level 4.0 mmol/L Chloride Level 102 mmol/L Carbon Dioxide Level 28 mmol/L Anion Gap 10 Blood Urea Nitrogen 12 mg/dl Creatinine 0.52 mg/dl Est Glomerular Filtrat Rate mL/min > 60 mL/min Glucose Level 231 mg/dl Calcium Level 9.9 mg/dl Total Bilirubin 0.1 mg/dl Direct Bilirubin 0.00 mg/dl Indirect Bilirubin 0.1 mg/dl Aspartate Amino Transf (AST/SGOT) 29 IU/L Alanine Aminotransferase (ALT/SGPT) 57 IU/L Alkaline Phosphatase 192 IU/L Troponin I < 0.012 ng/ml Total Protein 7.9 g/dl Albumin 4.3 g/dl Globulin 3.60 g/dl Albumin/Globulin Ratio 1.19 Phenytoin (Dilantin) Level < 3.0 ug/ml Procedures/MDM EKG: Rate/Rhythm: [Normal Sinus Rhythm] QRS, ST, T-waves: [No changes consistent w/ acute ischemia] Impression: [No evidence of ischemia or arrhythmia] Chest X-ray 1V Interpreted by me: Soft Tissue: No acute abnormalities Bones: No acute abnormalities Mediastinum/Cardiac Silhouette/Lungs: [No acute abnormalities] Patient's symptoms are concerning for cardiac cause will require inpatient workup and continuous monitoring. Further w/u for ischemia, arrhythmia, PE or dissection will be deferred to the inpatient team. Accepting Care Team: Current data and ongoing care discussed. Time: 5:45 AM Primary Provider: Dr. Pike Consulting: Deferred to inpatient team Outstanding Data: none Departure Diagnosis: Primary Impression: Chest pain Chest pain type: unspecified Qualified Codes: R07.9 - Chest pain, unspecified Condition: Stable PENELOPE WALL Nov 16, 2018 05:58
--- NOTE | 2018-11-16 06:19 | HP ---
Date/Time of Note Date/Time of Note DATE: 11/16/18 TIME: 06:19 Assessment/Plan VTE Prophylaxis SCD applied (from Nsg): Yes Pharmacological prophylaxis: NA/contraindicated Pharm contraindication: low risk/ambulating Assessment/Plan Hospital Course This is a 57-year-old male being admitted to the telemetry floor for observation for: #1 chest pain: Rule out ACS vs secondary to hyperglyemia. trend cardiac enzymes x3, the first that was negative, will check an echocardiogram, PRN nitro for pain. Aspirin daily, check hemoglobin A 1C, lipid panel, TSH. DM management. #2 diabetes mellitus type 2: Patient's blood sugar on arrival was 231. At the current time will check hemoglobin A 1C, insulin sliding scale insulin regimen and adjust as indicated. #3 epilepsy: At the current time I do not see any antiepileptic medications on the med recon, we will need to confirm with him regarding which medications he is taking. Seizure precautions, PRN Ativan, upon review of the chart he was noted in the past to be on Keppra and Dilantin we will need to confirm this. #4 mild dementia: Continue donepezil #5 DVT GI prophylaxis: SCDs, no GI prophylaxis indicated Further treatment strategy will be implemented as per the clinical course. Result Diagram: 11/16/1845011/16/18 0451 Results 24hrs Laboratory Tests Test 11/16/18 04:50 11/16/18 04:51 Bedside Glucose 208 White Blood Count 6.6 # Red Blood Count 4.64 L Hemoglobin 14.5 Hematocrit 39.9 L Mean Corpuscular Volume 86.0 Mean Corpuscular Hemoglobin 31.3 Mean Corpuscular Hemoglobin Concent 36.3 Red Cell Distribution Width 12.4 Platelet Count 216 Mean Platelet Volume 9.4 Immature Granulocytes % 0.200 Neutrophils % 66.8 Lymphocytes % 24.6 Monocytes % 6.8 Eosinophils % 1.1 Basophils % 0.5 Nucleated Red Blood Cells % 0.0 Immature Granulocytes # 0.010 Neutrophils # 4.4 Lymphocytes # 1.6 Monocytes # 0.5 Eosinophils # 0.1 Basophils # 0.0 Nucleated Red Blood Cells # 0.0 Prothrombin Time 12.1 Prothrombin Time Ratio 0.9 INR International Normalized Ratio 0.89 Activated Partial Thromboplast Time 24.8 Sodium Level 140 Potassium Level 4.0 Chloride Level 102 Carbon Dioxide Level 28 Anion Gap 10 Blood Urea Nitrogen 12 Creatinine 0.52 L Est Glomerular Filtrat Rate mL/min > 60 Glucose Level 231 H Calcium Level 9.9 Total Bilirubin 0.1 L Direct Bilirubin 0.00 Indirect Bilirubin 0.1 Aspartate Amino Transf (AST/SGOT) 29 Alanine Aminotransferase (ALT/SGPT) 57 Alkaline Phosphatase 192 H Troponin I < 0.012 Total Protein 7.9 Albumin 4.3 Globulin 3.60 H Albumin/Globulin Ratio 1.19 Phenytoin (Dilantin) Level < 3.0 L HPI/ROS Admit Date/Time Admit Date/Time Hx of Present Illness Chief complaint: High blood sugars, chest pain This is a 57-year-old male with a past medical history of diabetes mellitus and epilepsy who presented to the ER complaining of high blood sugars and chest pain. Patient reported that his blood sugar was noted to be as high as the 500s at home. He also had felt chest pain across his chest and his arms felt weak. He denies any shortness of breath or any lower extremity edema. He denies any sweating. At the current time he reports that his chest pain has resolved and his symptoms feel improved. Allergies: NKDA Medications: See Jan Const: As per HPI Eyes : No pain discharge or redness or change in visual acuity ENT: No pain, sore throat, congestion, congestion, dysphagia or discharge Respiratory: No shortness of breath, cough, sputum, wheezing, or pleuritic pain Cardiovascular: As per HPI GI : no change in appetite, abdominal pain, nausea, vomiting, diarrhea, constipation, or change in the color his stool Genitourinary: No dysuria, hematuria, flank pain , discharge or CVA tenderness Musculoskeletal: No joint pain, back pain, neck pain, restricted range of motion in neck or joints Skin: No rash, bruising or hives Neuro: No headache, dizziness, syncope, seizure, focal weakness Endocrine: No polyuria, polydipsia, temperature intolerance Psych: No hallucination, depression, anxiety or suicidal ideation PMH/Family/Social Past Medical History Diabetes mellitus, epilepsy, hyperlipidemia, mild dementia Medications Current Medications Aspirin (Aspirin) 81 mg DAILY PO ; Start 11/16/18 at 09:00; Status UNV Atorvastatin Calcium (Lipitor) 10 mg DAILY PO ; Start 11/16/18 at 09:00; Status UNV Donepezil HCl (Aricept) 10 mg DAILY PO ; Start 11/16/18 at 09:00; Status UNV Insulin Glargine (Lantus) 18 units QHS SC ; Start 11/16/18 at 21:00; Status UNV Miscellaneous Information 10 unit TID SQ ; Start 11/16/18 at 09:00; Status UNV IV Flush (NS 3 ml) 3 ml PER PROTOCOL IV ; Start 11/16/18 at 06:30; Status UNV Ondansetron HCl (Zofran Inj) 4 mg Q6H PRN IV NAUSEA AND/OR VOMITING; Start 11/16/18 at 06:30; Status UNV Nitroglycerin (Nitroglycerin (Sl Tab) 0.4 Mg) 1 tab Q5M PRN SL CHEST PAIN; Start 11/16/18 at 06:30; Status UNV Acetaminophen (Tylenol Tab) 650 mg Q6H PRN PO PAIN LEVEL 1-3 OR FEVER; Start 11/16/18 at 06:30; Status UNV Docusate Sodium (Colace) 100 mg Q12H PRN PO CONSTIPATION; Start 11/16/18 at 06:30; Status UNV Bisacodyl (Dulcolax) 5 mg DAILY PRN PO CONSTIPATION; Start 11/16/18 at 06:30; Status UNV Coded Allergies: No Known Allergy (Unverified , 11/16/18) Past Surgical History Right big toe amputation Family History Significant Family History: no pertinent family hx Social History Alcohol Use: none Smoking Status: Never smoker Drug Use: none Exam/Review of Systems Vital Signs Vitals Vital Signs Date Temp Pulse Resp B/P (MAP) Pulse Ox O2 O2 Flow FiO2 Time Delivery Rate 11/16/18 97.6 79 15 108/71 99 Room Air 06:00 (83) Exam Exam General: Patient is a pleasant male currently lying in bed in no acute distress HEENT: Atraumatic, normocephalic. The pupils are equal, round and reactive. Extraocular motor are intact Neck: Supple with full range of motion. No rigidity or meningismus Chest: Nontender to palpation Lungs: Clear to auscultation bilaterally no crackles rales or wheezing Heart: Normal S1-S2, Regular rhythm and rate. No overt murmurs appreciated on auscultation Abdomen: Soft , nontender, nondistended , bowel sounds are present. No guarding no rebound tenderness , No masses or organomegaly. No costovertebral temporal angle mass Extremities: Right big toe amputation Neurologic: Normal mental status, speech normal, cranial nerves II through XII are intact, motor and sensory are intact, no focal weakness Additional Comments EKG: Normal sinus rhythm at approximately 98 bpm, no ST or T wave abnormalities concerning for acute ischemia PROCEDURE: XR Chest. CLINICAL INDICATION: Seizure TECHNIQUE: AP upright chest was obtained COMPARISON: Chest 02/22/2013 FINDINGS: Hypoventilatory chest. Heart normal limits in size. Atherosclerosis of the aorta. No evidence of pulmonary vascular congestion acute lung consolidation pleural effusions and pneumothorax. IMPRESSION: No evidence of acute cardiopulmonary disease. RPTAT:AAJJ Physician Diana Date Time Electronically viewed and signed by Physician Diana on 11/16/2018 04:13 BM/ CC: PENELOPE WALL [id number] KEENA LUCERO Nov 16, 2018 06:19
[2018-11-16] MEDS ORDERED: ONDANSETRON 4 MG INJ IV PRN (06:30)
[2018-11-16] MEDS ORDERED: NACL 0.9% 3 ML SYG IV SCH (06:30)
[2018-11-16] MEDS ORDERED: NITROGLYCERIN (SL) 0.4 MG TAB SL PRN (06:30)
[2018-11-16] MEDS ORDERED: DOCUSATE SODIUM 100 MG CAP PO PRN (06:30)
[2018-11-16] MEDS ORDERED: BISACODYL (EC) 5 MG TAB PO PRN (06:30)
[2018-11-16] MEDS ORDERED: ACETAMINOPHEN 325 MG TAB PO PRN (06:30)
[2018-11-16] MEDS ORDERED: LORAZEPAM 4 MG/ML VIAL IV PRN (07:00)
[2018-11-16] MEDS: INSULIN ASPART [NOVOLOG] 3 ML PEN SC SCH ×7 (09:00→21:00)
--- NOTE | 2018-11-16 09:07 | PN ---
Date/Time of Note Date/Time of Note DATE: 11/16/18 TIME: 09:07 Assessment/Plan VTE Prophylaxis SCD applied (from Nsg): Yes Pharmacological prophylaxis: other Lines/Catheters IV Catheter Type (from Nrsg): Mid Line Assessment/Plan Assessment/Plan 1. Acute chest pain, rule out ACS - Patient states he was recently admitted to [facility] for chest pain and will obtain records - serial troponins being trended and negative x2 - ECHO ordered - A1c noted with poor control of DM - Aspirin, nitro PRN, statin on board 2. Diabetes Mellitus - A1c 11.3 - Lantus and Novolog on board. will adjust for better control - Diabetes education consultation placed for further recommendations. - Patient states he was on Janumet in the past but was taken off by his PCP 3. Seizure disorder - Restarted on Keppra and Dilantin - Ativan PRN 4. Mild dementia - on Donepezil 5. Disposition - continue trending troponins and await ECHO results. If remains pain free and all studies negative, will d/c tomorrow - Requesting to speak with SW for assistance with SSI paperwork Result Diagram: 11/16/18 0451 11/16/18 0451 Results 24hrs Laboratory Tests Test 11/16/18 04:46 11/16/18 04:50 11/16/18 04:51 Hepatitis B Surface Antigen NEGATIVE Hepatitis B Surface Antibody NEGATIVE Hepatitis C Antibody NEGATIVE HIV (1&2) Antibody NEGATIVE Bedside Glucose 208 White Blood Count 6.6 # Red Blood Count 4.64 L Hemoglobin 14.5 Hematocrit 39.9 L Mean Corpuscular Volume 86.0 Mean Corpuscular Hemoglobin 31.3 Mean Corpuscular Hemoglobin Concent 36.3 Red Cell Distribution Width 12.4 Platelet Count 216 Mean Platelet Volume 9.4 Immature Granulocytes % 0.200 Neutrophils % 66.8 Lymphocytes % 24.6 Monocytes % 6.8 Eosinophils % 1.1 Basophils % 0.5 Nucleated Red Blood Cells % 0.0 Immature Granulocytes # 0.010 Neutrophils # 4.4 Lymphocytes # 1.6 Monocytes # 0.5 Eosinophils # 0.1 Basophils # 0.0 Nucleated Red Blood Cells # 0.0 Prothrombin Time 12.1 Prothrombin Time Ratio 0.9 INR International Normalized Ratio 0.89 Activated Partial Thromboplast Time 24.8 Sodium Level 140 Potassium Level 4.0 Chloride Level 102 Carbon Dioxide Level 28 Anion Gap 10 Blood Urea Nitrogen 12 Creatinine 0.52 L Est Glomerular Filtrat Rate mL/min > 60 Glucose Level 231 H Hemoglobin A1c 11.8 H Calcium Level 9.9 Magnesium Level 2.0 Total Bilirubin 0.1 L Direct Bilirubin 0.00 Indirect Bilirubin 0.1 Aspartate Amino Transf (AST/SGOT) 29 Alanine Aminotransferase (ALT/SGPT) 57 Alkaline Phosphatase 192 H Troponin I < 0.012 Total Protein 7.9 Albumin 4.3 Globulin 3.60 H Albumin/Globulin Ratio 1.19 Triglycerides Level 61 Cholesterol Level 176 LDL Cholesterol, Calculated 106 HDL Cholesterol 58 Cholesterol/HDL Ratio 3.0 Thyroid Stimulating Hormone (TSH) 1.880 Phenytoin (Dilantin) Level < 3.0 L Subjective 24 Hr Interval Summary Free Text/Dictation Patient states chest pain has resolved and has been treated at [facility] recently for similar symptoms. No acute overnight events. Discussed poorly controlled DM. Exam/Review of Systems Vital Signs Vitals Vital Signs Date Temp Pulse Resp B/P (MAP) Pulse Ox O2 O2 Flow FiO2 Time Delivery Rate 11/16/18 70 08:45 11/16/18 97.8 12 113/70 97 Room Air 08:37 (84) Exam General: Patient is a pleasant male currently lying in bed in no acute distress Neck: Supple Chest: Nontender to palpation Lungs: Clear to auscultation bilaterally no crackles rales or wheezing Heart: Normal S1-S2, Regular rhythm and rate. No overt murmurs appreciated on auscultation Abdomen: Soft , nontender, nondistended , bowel sounds are present. No guarding no rebound tenderness , Skin: no rashes, lesions, or abrasions appreciated Medications Medications Current Medications Aspirin (Aspirin) 81 mg DAILY PO ; Start 11/16/18 at 09:00 Atorvastatin Calcium (Lipitor) 10 mg DAILY PO ; Start 11/16/18 at 09:00 Donepezil HCl (Aricept) 10 mg DAILY PO ; Start 11/16/18 at 09:00 Insulin Glargine (Lantus) 18 units QHS SC ; Start 11/16/18 at 21:00 Insulin Aspart (Novolog Insulin Pen) 10 unit AC MEALS SC ; Start 11/16/18 at 09:00 IV Flush (NS 3 ml) 3 ml PER PROTOCOL IV ; Start 11/16/18 at 06:30 Ondansetron HCl (Zofran Inj) 4 mg Q6H PRN IV NAUSEA AND/OR VOMITING; Start 11/16/18 at 06:30 Nitroglycerin (Nitroglycerin (Sl Tab) 0.4 Mg) 1 tab Q5M PRN SL CHEST PAIN; Start 11/16/18 at 06:30 Acetaminophen (Tylenol Tab) 650 mg Q6H PRN PO PAIN LEVEL 1-3 OR FEVER; Start 11/16/18 at 06:30 Docusate Sodium (Colace) 100 mg Q12H PRN PO CONSTIPATION; Start 11/16/18 at 06:30 Bisacodyl (Dulcolax) 5 mg DAILY PRN PO CONSTIPATION; Start 11/16/18 at 06:30 Lorazepam (Ativan) 1 mg Q4H PRN IV SEIZURES; Start 11/16/18 at 07:00 Miscellaneous Information (* Miscellaneous Pharmacy Order) Discontinue current oral sulfonylur... ONCE ONCE XX ; Start 11/16/18 at 09:00; Stop 11/16/18 at 09:01; Status UNV Diagnostic Test (Pha) (Accu-Chek) XX ; Start 11/17/18 at 02:00; Status UNV Miscellaneous Information (* Miscellaneous Pharmacy Order) HYPOGLYCEMIA PROTOCOL w... ONCE ONCE XX ; Start 11/16/18 at 09:00; Stop 11/16/18 at 09:01; Status UNV Insulin Aspart (Novolog Insulin Pen) NOVOLOG *MILD* ALGORITHM WITH MEALS BEDTIME SC ; Start 11/16/18 at 12:00; Status UNV Miscellaneous Information (* Miscellaneous Pharmacy Order) Discontinue all previ... ONCE ONCE XX ; Start 11/16/18 at 09:00; Stop 11/16/18 at 09:01; Status UNV ADAM TARANGO MD Nov 16, 2018 09:07
[2018-11-16] MEDS ORDERED: GLUCOSE GEL 15 GRAM TUBE BUCCAL PRN (09:30)
[2018-11-16] MEDS ORDERED: GLUCAGON 1 MG INJ IM PRN (09:30)
[2018-11-16] MEDS ORDERED: GLUCOSE GEL 15 GRAM TUBE PO PRN ×2 (09:30)
[2018-11-16] MEDS ORDERED: DEXTROSE 50% 50 ML SYRINGE IV PRN ×2 (09:30)
[2018-11-16] MEDS: ATORVASTATIN 10 MG TAB PO SCH (10:01)
[2018-11-16] MEDS: ASPIRIN 81 MG TAB PO SCH (10:01)
[2018-11-16] MEDS: DONEPEZIL 10 MG TAB PO SCH (10:02)
[2018-11-16] MEDS: LEVETIRACETAM 500 MG TAB PO SCH ×2 (10:27→21:48)
[2018-11-16] MEDS: PHENYTOIN 100 MG CAP PO SCH ×2 (10:27→21:48)
--- NOTE | 2018-11-16 17:58 | RADRPT ---
Echocardiogram Report Patient Name: SALEEM TOVAR Gender: Male Date: 1960 Study Date: 16-Nov-2018 Animal Therapist: Caro Pitts RDCS Location: [facility] Ref. Physician: KEENA LUCERO Quality: Adequate Procedures: Transthoracic echocardiogram with complete 2D, M-Mode, and doppler examination. Indications: Chest Pain. 2D/M Mode Doppler Measurement Value Normal Ranges Measurement Value Normal Ranges LVIDd 2D 3.7 3.5 - 5.6 cm AV Peak Pacheco 1.1 m/sec LVIDs 2D 2.5 2.1 - 4.1 cm AV Peak PG 5.0 mmHg FS 2D 31.6 % LVOT Peak Pacheco 0.8 m/sec LVPWd 2D 1.1 0.6 - 1.1 cm LVOT Peak PG 3.0 mmHg IVSd 2D 1.1 0.6 - 1.1 cm MV E Peak Pacheco 0.8 m/sec IVS/LVPW 2D 1.0 MV A Peak Pacheco 0.8 m/sec AoR Diam 2D 2.9 2.0 - 3.7 cm MV E/A 0.9 LA/Ao 2D 1 0 - 1 MV Decel Time 204 msec EDV 2D 49.4 cm3 MV E/A 0.9 ESV 2D 15.8 cm3 TR Peak Pacheco 2.3 m/sec LA Dimen 2D 3.4 2.3 - 4.0 cm TR Peak PG 21.0 mmHg RVSP 24.0 mmHg RA Pressure 3.0 Findings Left Ventricle: Normal left ventricular systolic function. Normal left ventricular cavity size. Normal left ventricular wall thickness. Ejection fraction is visually estimated at 65 %. Tissue Doppler/Mitral Doppler indices are within normal limits. Right Ventricle: Normal right ventricular size. Normal right ventricular systolic function. Left Atrium: The left atrium is normal in size. Right Atrium: The right atrium is normal in size. Mitral Valve: Normal appearance of the mitral valve. Trace mitral regurgitation. Aortic Valve: Normal appearance of the aortic valve. No significant aortic stenosis or insufficiency. Tricuspid Valve: Normal appearance of the tricuspid valve. Estimated peak PA systolic pressure 24 mmHg. There is trace tricuspid regurgitation. Pulmonic Valve: Normal pulmonic valve appearance. Pericardium: Normal pericardium with no significant pericardial effusion. Aorta: Normal aortic root. IVC: Normal size and normal respiratory collapse consistent with normal right atrial pressure. Conclusions Normal left ventricular systolic function. Normal left ventricular cavity size. Normal left ventricular wall thickness. Ejection fraction is visually estimated at 65 %. Tissue Doppler/Mitral Doppler indices are within normal limits. No significant valvular stenosis or regurgitation seen. Estimated peak PA systolic pressure 24 mmHg based on RA pressure of 3 mmHg. Electronically Signed By: Monico Ford 16-Nov-2018 17:57:44 -0800 Patient Name: SALEEM TOVAR Study Date: 16-Nov-[id number]
[2018-11-16] MEDS ORDERED: INSULIN GLARGINE [LANTus] (100 UNITS/ML) SYG SC SCH ×2 (21:00)
[2018-11-17] VITALS (8 sets, daily range): BP systolic 103–114; BP diastolic 57–73; PULSE 64–83; RESP 18–20
[2018-11-17] MEDS ORDERED: ACCU-CHEK XX SCH (02:00)
[2018-11-17] MEDS: INSULIN ASPART [NOVOLOG] 3 ML PEN SC SCH ×4 (07:46→12:52)
--- NOTE | 2018-11-17 08:04 | PN ---
Date/Time of Note Date/Time of Note DATE: 11/17/18 TIME: 08:04 Assessment/Plan VTE Prophylaxis Risk score (from Nsg)>0 risk: 1 SCD applied (from Nsg): Yes Pharmacological prophylaxis: heparin Lines/Catheters IV Catheter Type (from Nrsg): Mid Line Urinary Cath still in place: No Assessment/Plan Assessment/Plan 1. Acute chest pain- resolved - Triaged for records from recent hospitalization at [place] where patient states he was worked up for chest pain. states it was associated with Janumet as well - serial troponins being trended and negative x3 - ECHO results noted without structural abnormalities - A1c noted with poor control of DM - Aspirin, nitro PRN, statin on board 2. Diabetes Mellitus - A1c 11.3 - Lantus and Novolog on board. will adjust for better control - Diabetes education consultation appreciated - Patient states he was on Janumet in the past but was taken off by his PCP due to cardiac issues 3. Seizure disorder - on Keppra and Dilantin - no seizure activity appreciated during hospital stay - Ativan PRN 4. Mild dementia - on Donepezil 5. Disposition - Medically stable for discharge home Result Diagram: 11/17/1827 11/17/1827 Results 24hrs Laboratory Tests Test 11/16/18 09:56 11/16/18 10:49 11/16/18 12:00 11/16/18 14:10 Creatine Kinase 54 50 Creatine Kinase 2.1 1.7 Index Creatinine Kinase MB 1.16 0.86 (Mass) Troponin I < 0.012 < 0.012 Bedside Glucose 386 H 316 H Test 11/16/18 17:18 11/16/18 21:41 11/17/18 05:27 Bedside Glucose 174 120 White Blood Count 4.8 # Red Blood Count 4.43 L Hemoglobin 13.9 L Hematocrit 39.1 L Mean Corpuscular 88.3 Volume Mean Corpuscular 31.4 Hemoglobin Mean Corpuscular 35.5 Hemoglobin Concent Red Cell 12.6 Distribution Width Platelet Count 208 Mean Platelet Volume 9.5 Immature 0.200 Granulocytes % Neutrophils % 48.7 Lymphocytes % 39.0 Monocytes % 9.2 Eosinophils % 2.1 Basophils % 0.8 Nucleated Red Blood 0.0 Cells % Immature 0.010 Granulocytes # Neutrophils # 2.3 Lymphocytes # 1.9 Monocytes # 0.4 Eosinophils # 0.1 Basophils # 0.0 Nucleated Red Blood 0.0 Cells # Sodium Level 140 Potassium Level 4.3 Chloride Level 104 Carbon Dioxide Level 26 Anion Gap 10 Blood Urea Nitrogen 18 Creatinine 0.65 Est Glomerular > 60 Filtrat Rate mL/min Glucose Level 267 H Calcium Level 9.5 Total Bilirubin 0.1 L Direct Bilirubin 0.00 Indirect Bilirubin 0.1 Aspartate Amino 22 Transf (AST/SGOT) Alanine 47 Aminotransferase (AL T/SGPT) Alkaline Phosphatase 134 H Total Protein 6.9 # Albumin 3.7 Globulin 3.20 Albumin/Globulin 1.15 Ratio Subjective 24 Hr Interval Summary Free Text/Dictation Patient doing well and in no acute distress. states chest pain has resolved and discussed diabetic medications. No acute overnight events. Exam/Review of Systems Vital Signs Vitals Vital Signs Date Temp Pulse Resp B/P (MAP) Pulse Ox O2 O2 Flow FiO2 Time Delivery Rate 11/17/18 98.6 72 18 104/57 97 08:01 (73) 11/17/18 Room Air 04:57 Intake and Output 11/16/18 11/16/18 11/17/18 1515:00 23:00 07:00 IntakeIntake Total 830 ml 1180 ml OutputOutput Total 1500 ml BalanceBalance 830 ml -320 ml Exam General: Patient is a pleasant male currently lying in bed in no acute distress Neck: Supple Chest: Nontender to palpation Lungs: Clear to auscultation bilaterally no crackles rales or wheezing Heart: Normal S1-S2, Regular rhythm and rate. No overt murmurs appreciated on auscultation Abdomen: Soft , nontender, nondistended , bowel sounds are present. No guarding no rebound tenderness , Skin: no rashes, lesions, or abrasions appreciated Medications Medications Current Medications Aspirin (Aspirin) 81 mg DAILY PO Last administered on 11/16/18at 10:01; Admin Dose 81 MG; Start 11/16/18 at 09:00 Atorvastatin Calcium (Lipitor) 10 mg DAILY PO Last administered on 11/16/18at 10:01; Admin Dose 10 MG; Start 11/16/18 at 09:00 Donepezil HCl (Aricept) 10 mg DAILY PO Last administered on 11/16/18at 10:02; Admin Dose 10 MG; Start 11/16/18 at 09:00 Insulin Aspart (Novolog Insulin Pen) 10 unit AC MEALS SC Last administered on 11/17/18at 07:47; Admin Dose 10 UNIT; Start 11/16/18 at 09:00 IV Flush (NS 3 ml) 3 ml PER PROTOCOL IV ; Start 11/16/18 at 06:30 Ondansetron HCl (Zofran Inj) 4 mg Q6H PRN IV NAUSEA AND/OR VOMITING; Start 11/16/18 at 06:30 Nitroglycerin (Nitroglycerin (Sl Tab) 0.4 Mg) 1 tab Q5M PRN SL CHEST PAIN; Start 11/16/18 at 06:30 Acetaminophen (Tylenol Tab) 650 mg Q6H PRN PO PAIN LEVEL 1-3 OR FEVER; Start 11/16/18 at 06:30 Docusate Sodium (Colace) 100 mg Q12H PRN PO CONSTIPATION; Start 11/16/18 at 06:30 Bisacodyl (Dulcolax) 5 mg DAILY PRN PO CONSTIPATION; Start 11/16/18 at 06:30 Lorazepam (Ativan) 1 mg Q4H PRN IV SEIZURES; Start 11/16/18 at 07:00 Diagnostic Test (Pha) (Accu-Chek) 1 ea 02 XX ; Start 11/17/18 at 02:00 Insulin Aspart (Novolog Insulin Pen) NOVOLOG *MILD* ALGORITHM WITH MEALS BEDTIME SC Last administered on 11/17/18at 07:46; Admin Dose 3 UNIT; Start 11/16/18 at 12:00 Miscellaneous Information 1 ea NOTE XX ; Start 11/16/18 at 09:30 Glucose (Glutose) 15 gm Q15M PRN PO DECREASED GLUCOSE; Start 11/16/18 at 09:30 Glucose (Glutose) 22.5 gm Q15M PRN PO DECREASED GLUCOSE; Start 11/16/18 at 09:30 Dextrose (D50w Syringe) 25 ml Q15M PRN IV DECREASED GLUCOSE; Start 11/16/18 at 09:30 Dextrose (D50w Syringe) 50 ml Q15M PRN IV DECREASED GLUCOSE; Start 11/16/18 at 09:30 Glucagon (Glucagen) 1 mg Q15M PRN IM DECREASED GLUCOSE; Start 11/16/18 at 09:30 Glucose (Glutose) 15 gm Q15M PRN BUCCAL DECREASED GLUCOSE; Start 11/16/18 at 09:30 Levetiracetam (Keppra) 1,000 mg BID PO Last administered on 11/16/18at 21:48; Admin Dose 1,000 MG; Start 11/16/18 at 10:30 Phenytoin (Dilantin) 200 mg BID PO Last administered on 11/16/18at 21:48; Admin Dose 200 MG; Start 11/16/18 at 10:30 Insulin Glargine (Lantus) 22 units QHS SC Last administered on 11/16/18at 22:05; Admin Dose 22 UNITS; Start 11/16/18 at 21:00 ADAM TARANGO MD Nov 17, 2018 08:04
[2018-11-17] MEDS ORDERED: metFORMIN 500 MG TAB PO SCH (08:30)
[2018-11-17] MEDS: PHENYTOIN 100 MG CAP PO SCH (08:44)
[2018-11-17] MEDS: ASPIRIN 81 MG TAB PO SCH (08:44)
[2018-11-17] MEDS: DONEPEZIL 10 MG TAB PO SCH (08:44)
[2018-11-17] MEDS: LEVETIRACETAM 500 MG TAB PO SCH (08:44)
[2018-11-17] MEDS: ATORVASTATIN 10 MG TAB PO SCH (08:44)
[2018-11-17] MEDS ORDERED: LEVE-5 PO (10:53)
[2018-11-17] MEDS ORDERED: PHEN100C PO (10:53)
[2018-11-17] MEDS ORDERED: LANT3I SC (10:53)
--- NOTE | 2018-11-17 10:58 | PDOCDIS ---
Discharge Instructions DIAGNOSIS Discharge Diagnosis 1. Acute chest pain- noncardiac 2. Diabetes Mellitus 3. Seizure disorder 4. Mild dementia CONDITION [id number] Patient Condition: [id number] Stable HOME CARE INSTRUCTIONS: [id number] Diet Instructions: [id number] Low Fat /Cholesterol [id number] Special Diet: [id number] Activity Restrictions: [id number] No Restrictions FOLLOW UP/APPOINTMENTS Follow-up Plan 1. Follow up with your primary care physician in 1 week 2. Continue monitoring your sugars and follow the diet given to you while in the hospital 3. Take Lantus 25 units at night and continue with Novolog 10 units before meals. Continue adjusting per primary care physicians recommendations 4. If symptoms return or worsen, please go to your closest emergency department 1. seguimiento con de los santos mdico de atencin primaria en 1 semana 2. Contine monitoreando milli azcares y siga la dieta que le ch dado mientras est en el hospital 3. [place] Lantus 25 unidades por la noche y contine con NovoLog 10 unidades antes de las comidas. Continuar ajustando por recomendaciones de mdicos de atencin primaria 4. Si los sntomas regresan o empeoran, por favor dirjase a de los santos Departamento de emergencias ADAM Blanc MD Nov 17, 2018 10:58
[2018-11-17] MEDS ORDERED: LORAZEPAM 2 MG INJ IV PRN (11:00)
[2018-11-17] MEDS ORDERED: INSU100I33 SC (14:37)
[2018-11-17] MEDS ORDERED: NEED-135 MC (14:38)
[2018-11-17] MEDS ORDERED: INSU200I SQ (14:38)
--- NOTE | 2018-11-17 17:55 | DS ---
Date/Time of Note Date/Time of Note DATE: 11/17/18 TIME: 17:55 Discharge Summary Admission/Discharge Info Admit Date/Time Nov 16, 2018 at 05:52 Discharge Date/Time Nov 17, 2018 at 14:30 Discharge Diagnosis 1. Acute chest pain- noncardiac 2. Diabetes Mellitus 3. Seizure disorder 4. Mild dementia Patient Condition: Stable Procedures PROCEDURE: XR Chest. CLINICAL INDICATION: Seizure TECHNIQUE: AP upright chest was obtained COMPARISON: Chest 02/22/2013 FINDINGS: Hypoventilatory chest. Heart normal limits in size. Atherosclerosis of the aorta. No evidence of pulmonary vascular congestion acute lung consolidation pleural effusions and pneumothorax. IMPRESSION: No evidence of acute cardiopulmonary disease. RPTAT:AAJJ Physician Diana Date Time Electronically viewed and signed by Kristie Tyler Physician on 11/16/2018 04:13 Hx of Present Illness Chief complaint: High blood sugars, chest pain This is a 57-year-old male with a past medical history of diabetes mellitus and epilepsy who presented to the ER complaining of high blood sugars and chest pain. Patient reported that his blood sugar was noted to be as high as the 500s at home. He also had felt chest pain across his chest and his arms felt weak. He denies any shortness of breath or any lower extremity edema. He denies any sweating. At the current time he reports that his chest pain has resolved and his symptoms feel improved. Allergies: NKDA Hospital Course Patient was admitted for chest pain workup and ACS was ruled out with negative serial troponins, EKG negative for acute ST changes, and ECHO negative for any structural abnormalities. Patients symptoms resolved and per patient, he was worked up at [facility] last month for chest pain as well. Patient states it was determined his pain was associated with metformin as well as insulin inje ctions. His PO DM medications were discontinued. Patient was evaluated by DM educator given A1c 11.4 and counseling was provided. Patient presenting symptoms resolved and on day of discharge patients vitals and physical exam were stable. Patient was discharged home in stable condition. Home Meds Active Scripts [place], Insulin Disposable (Sandra Pen Needle) 1 Each Dis.needle, EACH [facility] H, #120 Prov:ADAM TARANGO MD 11/17/18 Insulin Lispro (Humalog Kwikpen) 200 Unit/1 Ml Insuln.pen, 10 UNIT SQ TID for 30 Days, #10 EA 6 Refills Prov:ADAM TARANGO MD 11/17/18 Insulin Glargine,Hum.rec.anlog (Basaglar Kwikpen U-100) 100 Unit/1 Ml Insuln.pen, 25 UNIT SC QHS for 30 Days, #10 EA 6 Refills Prov:ADAM TARANGO MD 11/17/18 Phenytoin* Sodium Extended (Dilantin*) 100 Mg Capsule, 200 MG PO BID for 30 Days, #60 CAP Prov:ADAM TARANGO MD 11/17/18 Levetiracetam* (Keppra*) 500 Mg Tablet, 1000 MG PO BID for 30 Days, #60 TAB Prov:ADAM TARANGO MD 11/17/18 Reported Medications Atorvastatin Calcium (Atorvastatin Calcium) 10 Mg Tablet, 10 MG PO DAILY, #30 TAB 06/06/17 Donepezil* (Donepezil*) 10 Mg Tablet, 10 MG PO DAILY, #30 TAB 06/06/17 Aspirin (Gaetano Child) 81 Mg Chew, daily 02/22/13 Discontinued Reported Medications Insulin Glargine* (Lantus*) 100 Unit/Ml Soln, 18 UNIT SC QHS, #1 VIAL 09/19/17 Sitagliptin Phos/Metformin HCl (Janumet 50-1,000 mg Tablet) 1 Each Tablet, 1 EACH PO BID, TAB 09/19/17 Levetiracetam* (Keppra*) 1,000 Mg Tablet, 1000 MG PO BID, TAB 09/19/17 Discontinued Scripts Azithromycin* (Zithromax*) 250 Mg Tablet, 250 MG PO .BETY DIRECTED, #6 TAB TAKE 500 MG (2 TABS) THE FIRST DAY THEN 250 MG (1 TAB) DAYS 2-5 Prov:DAMARIS CLARKE DO 09/19/17 Phenytoin* Sodium Extended (Dilantin*) 200 Mg Capsule, 200 MG PO BID, #90 CAP Prov:DAMARIS CLARKE DO 09/19/17 Follow-up Plan 1. Follow up with your primary care physician in 1 week 2. Continue monitoring your sugars and follow the diet given to you while in the hospital 3. Take Lantus 25 units at night and continue with Novolog 10 units before meals. Continue adjusting per primary care physicians recommendations 4. If symptoms return or worsen, please go to your closest emergency department 1. seguimiento con de los santos mdico de atencin primaria en 1 semana 2. Contine monitoreando milli azcares y siga la dieta que le ch dado mientras est en el hospital 3. [place] Lantus 25 unidades por la noche y contine con NovoLog 10 unidades antes de las comidas. Continuar ajustando por recomendaciones de mdicos de atencin primaria 4. Si los sntomas regresan o empeoran, por favor dirjase a de los santos Departamento de emergencias ms saucedo Primary Care Provider Not On Staff Doctor Time spent on discharge: > 30 minutes Pending Labs Laboratory Tests Test 11/16/18 21:41 11/17/18 05:27 11/17/18 12:46 Bedside Glucose 120 mg/dL (70-220) 129 mg/dL (70-220) White Blood Count 4.8 10^3/ul (4.8-10.8) Red Blood Count 4.43 10^6/ul (4.70-6.10) Hemoglobin 13.9 g/dl (14.0-18.0) Hematocrit 39.1 % (42.0-52.0) Mean Corpuscular 88.3 Volume fl (82.0-101.0) Mean Corpuscular 31.4 pg (29.0-33.0) Hemoglobin Mean Corpuscular 35.5 Hemoglobin Concent g/dl (32.0-37.0) Red Cell 12.6 % (11.5-14.5) Distribution Width Platelet Count 208 10^3/UL (140-415) Mean Platelet 9.5 fl (7.4-10.4) Volume Immature 0.200 Granulocytes % % (0.001-0.429) Neutrophils % 48.7 % (39.0-77.0) Lymphocytes % 39.0 % (15.0-51.0) Monocytes % 9.2 % (0.0-11.0) Eosinophils % 2.1 % (0.0-7.0) Basophils % 0.8 % (0.0-2.0) Nucleated Red Blood 0.0 Cells % /100WBC (0.0-0.0) Immature 0.010 Granulocytes # 10^3/ul (0.0-0.031) Neutrophils # 2.3 10^3/ul (1.6-7.5) Lymphocytes # 1.9 10^3/ul (0.8-2.9) Monocytes # 0.4 10^3/ul (0.3-0.9) Eosinophils # 0.1 10^3/ul (0.0-0.5) Basophils # 0.0 10^3/ul (0.0-0.1) Nucleated Red Blood 0.0 Cells # 10^3/ul (0.0-0.0) Sodium Level 140 mmol/L (135-144) Potassium Level 4.3 mmol/L (3.5-5.1) Chloride Level 104 mmol/L (97-110) Carbon Dioxide 26 mmol/L (21-31) Level Anion Gap 10 (5-13) Blood Urea 18 mg/dl (7-20) Nitrogen Creatinine 0.65 mg/dl (0.61-1.24) Est Glomerular > 60 mL/min (>60) Filtrat Rate mL/min Glucose Level 267 mg/dl (70-220) Calcium Level 9.5 mg/dl (8.4-10.2) Total Bilirubin 0.1 mg/dl (0.2-1.3) Direct Bilirubin 0.00 mg/dl (0.00-0.20) Indirect Bilirubin 0.1 mg/dl (0-1.1) Aspartate Amino 22 IU/L (15-46) Transf (AST/SGOT) Alanine 47 IU/L (13-69) Aminotransferase (A LT/SGPT) Alkaline 134 IU/L (42-121) Phosphatase Total Protein 6.9 g/dl (6.1-8.1) Albumin 3.7 g/dl (3.3-4.9) Globulin 3.20 g/dl (1.3-3.2) Albumin/Globulin 1.15 Ratio ADAM TARANGO MD Nov 17, 2018 17:55
[2018-11-17] MEDS ORDERED: INSULIN GLARGINE [LANTus] (100 UNITS/ML) SYG SC SCH (21:00)
== END 2018-11-17 14:30 | disposition home or self-care (01) ==
LOC: E/R 01:46 → 6WM 05:52 → CANRESERV 07:09
PROVIDERS: ADMIT Family Medicine; ATTEND Internal Medicine
DX: R07.9 Chest pain, unspecified (principal); E11.9 Type 2 diabetes mellitus without complications; Z79.4 Long term (current) use of insulin; G40.909 Epilepsy, unspecified, not intractable, without status epilepticus; F03.90 Unspecified dementia, unspecified severity, without behavioral disturbance, psychotic disturbance, mood disturbance, and anxiety
CPT/HCPCS: 36415; 71045; 80053; 80061; 80185; 82550; 82553; 82962; 83036; 83735; 84443; 84484; 85025; 85610; 85730; 86703; 86706; 86803; 87340; 93005; 93306; 99285; G0378; J1815

== ENCOUNTER 2019-01-04 22:38 | Emergency (ER) | payer MEDICARE, OTHER ==
[~2019-01-04] VITALS: Ht 157.5 cm; Wt 68.4 kg
[~2019-01-04 22:38] MED LIST changes: -AZIT250T PO; +INSU100I33 SC; -LANT3I SC; +LEVE-5 PO; -LEVE100018 PO; +NEED-135 MC; +PHEN100C PO; -PHEN200C PO; -SITA1TAB5 PO
[2019-01-04 22:54] VITALS: Ht 157.5 cm; Wt 68.4 kg
--- NOTE | 2019-01-05 01:05 | ERD ---
ER Documentation Chief Complaint Chief Complaint PT BIB SELF W/ C/O OVER 500 BG AT HOME HPI The patient is a 58-year-old male, presenting to the ER because of elevated blood glucose at home. He had similar symptoms previously, complains that he is compliant with dietary and medication, denies headache, neck pain, chest pain, dyspnea, abdominal pain, vomiting, dysuria, polyuria. He does not smoke or drink Past medical history: Dyslipidemia, diabetes mellitus, epilepsy Past surgical history: Right great toe amputation ROS All systems reviewed and are negative except as per history of present illness. Medications Home Meds Active Scripts [place], Insulin Disposable (Sandra Pen Needle) 1 Each Dis.needle, EACH [facility] H, #120 Prov:ADAM TARANGO MD 11/17/18 Insulin Lispro (Humalog Kwikpen) 200 Unit/1 Ml Insuln.pen, 10 UNIT SQ TID for 30 Days, #10 EA 6 Refills Prov:ADAM TARANGO MD 11/17/18 Insulin Glargine,Hum.rec.anlog (Basaglar Kwikpen U-100) 100 Unit/1 Ml Insuln.pen, 25 UNIT SC QHS for 30 Days, #10 EA 6 Refills Prov:ADAM TARANGO MD 11/17/18 Phenytoin* Sodium Extended (Dilantin*) 100 Mg Capsule, 200 MG PO BID for 30 Days, #60 CAP Prov:ADAM TARANGO MD 11/17/18 Levetiracetam* (Keppra*) 500 Mg Tablet, 1000 MG PO BID for 30 Days, #60 TAB Prov:ADAM TARANGO MD 11/17/18 Reported Medications Atorvastatin Calcium (Atorvastatin Calcium) 10 Mg Tablet, 10 MG PO DAILY, #30 TAB 06/06/17 Donepezil* (Donepezil*) 10 Mg Tablet, 10 MG PO DAILY, #30 TAB 06/06/17 Aspirin (Gaetano Child) 81 Mg Chew, daily 02/22/13 Allergies Allergies: Coded Allergies: No Known Allergy (Unverified , 11/16/18) PMhx/Soc History of Surgery: Yes (right toe amputated) Anesthesia Reaction: No Hx Neurological Disorder: Yes (seizures- kepra, phenytoin) Hx Respiratory Disorders: No Hx Cardiac Disorders: Yes (hyperlipedemia) Hx Psychiatric Problems: No Hx Miscellaneous Medical Probl: Yes Hx Alcohol Use: Yes (quit recently 250 years ago) Hx Substance Use: No Hx Tobacco Use: No Physical Exam Vitals Vital Signs Date Temp Pulse Resp B/P (MAP) Pulse Ox O2 O2 Flow FiO2 Time Delivery Rate 01/05/19 79 16 127/77 97 Room Air 02:49 (94) 01/04/19 98.5 101 19 197/70 100 22:54 (112) Physical Exam Const: No acute distress. Head: Atraumatic. Eyes: Normal Conjunctiva. ENT: Normal External Ears, Nose and Mouth. Neck: Full range of motion. No meningismus. Resp: Clear to auscultation bilaterally. Cardio: Regular rate and rhythm. Abd: Soft, non distended, normal bowel sounds, non tender. Skin: No petechiae or rashes. Back: No midline or flank tenderness. Ext: No cyanosis, or edema. Neur: Awake and alert. No focal deficit Psych: Normal Mood and Affect. Result Diagram: 01/05/19 0230 01/05/19 0200 Results 24 hrs Laboratory Tests Test 01/04/19 22:47 01/05/19 01:10 01/05/19 01:17 01/05/19 02:00 Bedside Glucose 321 mg/dL 174 mg/dL Blood Gas Blood venous Specimen Source Arterial Blood 01/05/2019 2:28:0 Date Drawn 5 AM Arterial Blood VENOUS LINE Gas Puncture Site Lauri Test N/A Venous Blood pH 7.404 Venous Blood 42.1 mmHG pCO2 (Temp Corrected ) Venous Blood 44.6 mmHG pO2 (Temp Corrected ) Venous Blood 25.7 mmol/L HCO3 Venous Blood 77.7 mmHG Oxygen Saturation Venous Blood 0.8 mmol/L Base Excess Venous Blood 14.1 g/dl Total Hemoglobin Venous Blood 77.3 % Oxyhemoglobin Venous Blood 0.3 % Methemoglobin Carboxyhemoglob 0.2 % in Blood Gas 37.0 C Temperature Blood Gas ROOM AIR Modality FiO2 21.0 % Blood Gas AA Notified Whom Blood Gas 01/05/2019 2:34:0 Notified Time 0 AM Sodium Level 139 mmol/L Potassium Level 3.8 mmol/L Chloride Level 103 mmol/L Carbon Dioxide 26 mmol/L Level Anion Gap 10 Blood Urea 17 mg/dl Nitrogen Creatinine 0.63 mg/dl Est Glomerular > 60 mL/min Filtrat Rate mL/min Glucose Level 184 mg/dl Calcium Level 9.3 mg/dl Phosphorus 3.7 mg/dl Level Magnesium Level 1.9 mg/dl Test 01/05/19 02:02 01/05/19 02:11 01/05/19 02:30 Urine Color COLORLESS Urine Clarity CLEAR Urine pH 6.0 Urine Specific 1.003 [place] Urine Ketones NEGATIVE mg/dL Urine Nitrite NEGATIVE mg/dL Urine Bilirubin NEGATIVE mg/dL Urine NEGATIVE mg/dL Urobilinogen Urine Leukocyte NEGATIVE Mikayla/ul Esterase Urine 0 /HPF Microscopic RBC Urine 0 /HPF Microscopic WBC Urine 1+ mg/dL Hemoglobin Urine Glucose 2+ mg/dL Urine Total NEGATIVE mg/dl Protein Bedside Urine 6.0 pH (LAB) Bedside Urine Negative Protein (LAB) Bedside Urine 0.1% Glucose (UA) Bedside Urine Negative Ketones (LAB) Bedside Urine Negative Blood Bedside Urine Negative Nitrite (LAB) Bedside Urine Negative Leukocyte Haylee ase (L White Blood 7.2 10^3/ul Count Red Blood Count 4.15 10^6/ul Hemoglobin 13.0 g/dl Hematocrit 37.0 % Mean 89.2 fl Corpuscular Volume Mean 31.3 pg Corpuscular Hemoglobin Mean 35.1 g/dl Corpuscular Hemoglobin Conc ent Red Cell 12.1 % Distribution Width Platelet Count 190 10^3/UL Mean Platelet 9.4 fl Volume Immature 0.300 % Granulocytes % Neutrophils % 68.5 % Lymphocytes % 21.0 % Monocytes % 8.7 % Eosinophils % 1.1 % Basophils % 0.4 % Nucleated Red 0.0 /100WBC Blood Cells % Immature 0.020 10^3/ul Granulocytes # Neutrophils # 5.0 10^3/ul Lymphocytes # 1.5 10^3/ul Monocytes # 0.6 10^3/ul Eosinophils # 0.1 10^3/ul Basophils # 0.0 10^3/ul Nucleated Red 0.0 10^3/ul Blood Cells # Current Medications Medications Dose Sig/Itgre Start Time Status Last (Trade) Ordered Route PRN Stop Time Admin Dose Reason Admin Sodium 680 ml @ ONCE ONCE 01/05/19 DC 01/05/19 Chloride 680 mls/hr IV 01:30 01/05/19 02:01 02:29 Procedures/MDM MEDICAL MAKING DECISION: The patient is a 58-year-old male, presenting with acute hyperglycemia, is stable outpatient follow-up The differential diagnoses considered include but are not limited to medical noncompliance, HHS, DKA, anxiety attack, panic attack Departure Diagnosis: Primary Impression: Hyperglycemia Additional Impression: Anemia Condition: Good Comments The patient's blood pressure was elevated (>120/80) but appears stable without evidence of hypertension emergency or urgency. The patient was counseled about the risks of hypertension and urged to pursue outpatient monitoring and therapy within a week with their primary care physician. I discussed the findings with the patient. I advised the patient to follow-up with the primary physician in about 2-3 days, sooner if needed and return if any concern. Disclaimer: Inadvertent spelling and grammatical errors are likely due to EHR/dictation software use and do not reflect on the overall quality of patient care. Also, please note that the electronic time recorded on this note does not necessarily reflect the actual time of the patient encounter. NEREIDA BABCOCK MD Jan 05, 2019 01:05
[2019-01-05] MEDS ORDERED: SOD CHLORIDE 0.9% 680 ML IV ONE (01:30)
[2019-01-05 03:11] VITALS: BP 130/78; PULSE 78; RESP 16
== END 2019-01-05 03:13 | disposition home or self-care (01) ==
LOC: E/R 22:38
DX: E11.65 Type 2 diabetes mellitus with hyperglycemia (principal); D64.9 Anemia, unspecified; Z79.4 Long term (current) use of insulin; Z79.82 Long term (current) use of aspirin
CPT/HCPCS: 36415; 80048; 81001; 81003; 82803; 82962; 83735; 84100; 85025; 99284; J7030

== ENCOUNTER 2019-02-11 09:18 | Emergency (ER) | payer MEDICARE, OTHER ==
[~2019-02-11] VITALS: Ht 167.6 cm; Wt 70.0 kg
[2019-02-11 09:24] VITALS: Ht 167.6 cm; Wt 70.0 kg
[2019-02-11] MEDS ORDERED: ONDANSETRON 4 MG INJ IV STA (09:24)
[2019-02-11] MEDS ORDERED: SOD CHLORIDE 0.9% 1,000 ML IV STA (09:24)
--- NOTE | 2019-02-11 11:06 | ERD ---
ER Documentation Chief Complaint Chief Complaint HEADACHE, SHAKINESS, CHEST PAIN STARTING THIS MORNING HPI This is a 58-year-old male with a history of hypertension, type 2 diabetes and epilepsy who is on Keppra who presents to the emergency room today for evaluation of generalized weakness and shakiness. The patient states that he did have chest pain prior to arrival however is not complaining of any chest pain or shortness of breath or nausea or vomiting currently. The patient came to the ER for evaluation of his symptoms at this time ROS All systems reviewed and are negative except as per history of present illness. Medications Home Meds Active Scripts [place], Insulin Disposable (Sandra Pen Needle) 1 Each Dis.needle, EACH [facility] H, #120 Prov:ADAM TARANGO MD 11/17/18 Insulin Lispro (Humalog Kwikpen) 200 Unit/1 Ml Insuln.pen, 10 UNIT SQ TID for 30 Days, #10 EA 6 Refills Prov:ADAM TARANGO MD 11/17/18 Insulin Glargine,Hum.rec.anlog (Basaglar Kwikpen U-100) 100 Unit/1 Ml Insuln.pen, 25 UNIT SC QHS for 30 Days, #10 EA 6 Refills Prov:ADAM TARANGO MD 11/17/18 Phenytoin* Sodium Extended (Dilantin*) 100 Mg Capsule, 200 MG PO BID for 30 Days, #60 CAP Prov:ADAM TARANGO MD 11/17/18 Levetiracetam* (Keppra*) 500 Mg Tablet, 1000 MG PO BID for 30 Days, #60 TAB Prov:ADAM TARANGO MD 11/17/18 Reported Medications Atorvastatin Calcium (Atorvastatin Calcium) 10 Mg Tablet, 10 MG PO DAILY, #30 TAB 06/06/17 Donepezil* (Donepezil*) 10 Mg Tablet, 10 MG PO DAILY, #30 TAB 06/06/17 Aspirin (Gaetano Child) 81 Mg Chew, daily 02/22/13 Allergies Allergies: Coded Allergies: No Known Allergy (Unverified , 11/16/18) PMhx/Soc History of Surgery: Yes (right great toe amputation) Anesthesia Reaction: No Hx Neurological Disorder: Yes (seizures- kepra, phenytoin) Hx Respiratory Disorders: No Hx Cardiac Disorders: No (HTN) Hx Psychiatric Problems: No Hx Miscellaneous Medical Probl: Yes (DM) Hx Alcohol Use: No Hx Substance Use: No Hx Tobacco Use: No Smoking Status: Never smoker Physical Exam Vitals Vital Signs Date Temp Pulse Resp B/P (MAP) Pulse Ox O2 O2 Flow FiO2 Time Delivery Rate 02/11/19 98.3 119 16 170/96 100 09:24 (120) Physical Exam INITIAL VITAL SIGNS: Reviewed by me GENERAL: The patient is well developed and appropriate for usual state of health in no apparent distress HEENT: Dry mucous membranes, pupils equal, round, and reactive to light. EOMI. There is no scleral icterus. NECK: C-spine is soft and supple, there is no meningismus. There is no cerv ical lymphadenopathy. LUNGS: Clear to auscultation bilaterally. There are no rales, wheezes or rhon chi. HEART: Tachycardic, no murmurs, clicks, rubs or gallops. ABDOMEN: Soft, non-tender, non-distended. There are bowel sounds in all four quadrants. No rebound or guarding. EXTREMITIES: There is no peripheral cyanosis or edema. No focal swelling or erythema. NEUROLOGICAL: The patient moves all four extremities with 5/5 strength. Cranial nerves II - XII are intact. Normal gait. Alert and oriented SKIN: There is no apparent rash or petechiae. HEME/LYMPHATIC: There is no evidence of excessive bruising or lymphedema. PSYCHIATRIC: The patient does not appear anxious or depressed. Result Diagram: 02/11/1949 02/11/19948 Results 24 hrs Laboratory Tests Test 02/11/19 09:27 02/11/19 09:49 02/11/19 09:54 Bedside Glucose 252 mg/dL White Blood Count 11.1 10^3/ul Red Blood Count 4.30 10^6/ul Hemoglobin 13.2 g/dl Hematocrit 38.1 % Mean Corpuscular Volume 88.6 fl Mean Corpuscular Hemoglobin 30.7 pg Mean Corpuscular 34.6 g/dl Hemoglobin Concent Red Cell Distribution Width 12.2 % Platelet Count 208 10^3/UL Mean Platelet Volume 9.2 fl Immature Granulocytes % 0.500 % Neutrophils % 67.1 % Lymphocytes % 25.3 % Monocytes % 6.0 % Eosinophils % 0.8 % Basophils % 0.3 % Nucleated Red Blood Cells % 0.0 /100WBC Immature Granulocytes # 0.050 10^3/ul Neutrophils # 7.5 10^3/ul Lymphocytes # 2.8 10^3/ul Monocytes # 0.7 10^3/ul Eosinophils # 0.1 10^3/ul Basophils # 0.0 10^3/ul Nucleated Red Blood Cells # 0.0 10^3/ul Prothrombin Time 12.3 Sec Prothrombin Time Ratio 1.0 INR International 0.90 Normalized Ratio Activated Partial Thromboplast 24.5 Sec Time Sodium Level 140 mmol/L Potassium Level 3.8 mmol/L Chloride Level 103 mmol/L Carbon Dioxide Level 24 mmol/L Anion Gap 13 Blood Urea Nitrogen 19 mg/dl Creatinine 0.75 mg/dl Est Glomerular Filtrat > 60 mL/min Rate mL/min Glucose Level 285 mg/dl Calcium Level 9.0 mg/dl Total Bilirubin 0.2 mg/dl Direct Bilirubin 0.00 mg/dl Indirect Bilirubin 0.2 mg/dl Aspartate Amino Transf (AST/SGOT) 19 IU/L Alanine 20 IU/L Aminotransferase (ALT/SGPT) Alkaline Phosphatase 165 IU/L Troponin I < 0.012 ng/ml Total Protein 7.3 g/dl Albumin 4.1 g/dl Globulin 3.20 g/dl Albumin/Globulin Ratio 1.28 Lipase 141 U/L Urine Color STRAW Urine Clarity CLEAR Urine pH 5.0 Urine Specific [place] 1.009 Urine Ketones TRACE mg/dL Urine Nitrite NEGATIVE mg/dL Urine Bilirubin NEGATIVE mg/dL Urine Urobilinogen NEGATIVE mg/dL Urine Leukocyte Esterase NEGATIVE Mikayla/ul Urine Microscopic RBC 1 /HPF Urine Microscopic WBC 0 /HPF Urine Hemoglobin 1+ mg/dL Urine Glucose 3+ mg/dL Urine Total Protein 1+ mg/dl Current Medications Medications Dose Sig/Tigre Start Time Status Last (Trade) Ordered Route PRN Stop Time Admin Dose Reason Admin Sodium 1,000 ml @ Q1H STAT 02/11/19 DC 02/11/19 Chloride 1,000 mls/hr IV 09:24 02/11/19 09:46 10:23 Ondansetron 4 mg ONCE STAT 02/11/19 DC 02/11/19 HCl (Zofran IV 09:24 02/11/19 09:46 Inj) 09:25 Procedures/MDM EKG: Rate/Rhythm: [Normal Sinus Rhythm] QRS, ST, T-waves: [No changes consistent w/ acute ischemia] Impression: [No evidence of ischemia or arrhythmia] Chest X-ray 1V Interpreted by me: Soft Tissue: No acute abnormali ties Bones: No acute abnormalities Mediastinum/Cardiac Silhouette/Lungs: [No acute abnormalities] This 58-year-old male presents to the emergency room for evaluation of multiple symptoms including shakiness and generalized weakness. On my examination the patient had dry mucous membranes and was tachycardic. An IV line was established she was given IV fluids and Zofran. Lab work was obtained which does show mild hyperglycemia. His EKG is nonischemic and troponin is normal. Chest x-ray is clear at this time. On reevaluation the patient is sleeping comfortably and in no acute distress. He has no complaints at this time and his heart rate is now 82 bpm. He is not hypoxic, and in no acute distress. The patient is stable for discharge at this time with a prescription for Zofran for nausea. He was given strict return precautions and does feel comfortable with the plan of care at this time. Departure Diagnosis: Primary Impression: Dehydration Additional Impressions: Generalized weakness Nausea Type 2 diabetes mellitus Condition: Stable SÁNCEHZ RODRIGUEZ DO Feb 11, 2019 11:06
[2019-02-11] MEDS ORDERED: ONDA4TAB8 PO (11:07)
[2019-02-11] MEDS ORDERED: ATOR10TA65 PO (11:11)
[2019-02-11] MEDS ORDERED: ASPI-817 PO (11:11)
[2019-02-11] MEDS ORDERED: DONE10TA7 PO (11:11)
[2019-02-11] MEDS ORDERED: INSU100I33 SC (11:12)
[2019-02-11 11:35] VITALS: BP 101/52; PULSE 76; RESP 16
[2019-02-11] MEDS ORDERED: LEVE100018 PO (15:40)
== END 2019-02-11 12:09 | disposition home or self-care (01) ==
LOC: E/R 09:18
DX: E86.0 Dehydration (principal); R53.1 Weakness; E11.9 Type 2 diabetes mellitus without complications; I10 Essential (primary) hypertension; Z79.4 Long term (current) use of insulin
CPT/HCPCS: 36415; 71045; 80053; 81001; 82962; 83690; 84484; 85025; 85610; 85730; 96374; 99285; J2405; J7030

== ENCOUNTER 2019-02-11 13:12 | Emergency (ER) | payer MEDICARE, OTHER ==
[~2019-02-11] VITALS: Ht 167.6 cm; Wt 70.0 kg
[~2019-02-11 13:12] MED LIST changes: +ASPI-817 PO; +ONDA4TAB8 PO
[2019-02-11] MEDS ORDERED: LEVETIRACETAM 1000 MG (PMX) 100 ML IVPB STA (13:29)
[2019-02-11] MEDS ORDERED: SOD CHLORIDE 0.9% 1,000 ML IV STA (13:29)
[2019-02-11] MEDS ORDERED: ONDANSETRON 4 MG INJ IV STA (13:29)
[2019-02-11] MEDS ORDERED: HYDROmorphONE 1 MG/ML SYG IV STA (13:29)
[2019-02-11 13:33] VITALS: Ht 167.6 cm; Wt 70.0 kg
--- NOTE | 2019-02-11 14:08 | ERD ---
ER Documentation Chief Complaint Chief Complaint SEIZURE WHEN WALKING ACROSS THE STREET. HIT HEAD HPI This is a 58-year-old male who was just discharged in the ER for dehydration. The patient was walking across the street to a bus stop when witnesses say that he had a seizure. This study was walking and then he fell forward hitting the back of his head on the concrete with a general tonic seizure for about 1 minute with a postictal state. EMS arrived and said he was postictal but rapidly improved. Here he is complaining about occipital headache. The patient says that he takes Keppra, he is not sure but he thinks is been taking his dosages. Denies any numbness weakness or focal neurological complaints ROS All systems reviewed and are negative except as per history of present illness. Medications Home Meds Active Scripts Ondansetron Hcl* (Zofran*) 4 Mg Tablet, 4 MG PO Q8H PRN for NAUSEA AND/OR VOMITING, #12 TAB Prov:SÁNCHEZ RODRIGUEZ DO 02/11/19 Insulin Lispro (Humalog Kwikpen) 200 Unit/1 Ml Insuln.pen, 10 UNIT SQ TID for 30 Days, #10 EA 6 Refills Prov:ADAM TARANGO MD 11/17/18 Phenytoin* Sodium Extended (Dilantin*) 100 Mg Capsule, 200 MG PO BID for 30 Days, #60 CAP Prov:ADAM TARANGO MD 11/17/18 Levetiracetam* (Keppra*) 500 Mg Tablet, 1000 MG PO BID for 30 Days, #60 TAB Prov:ADAM TARANGO MD 11/17/18 Reported Medications Insulin Glargine,Hum.rec.anlog (Basaglar Kwikpen U-100) 100 Unit/1 Ml Insuln.pen, 35 UNIT SC QHS, EA 02/11/19 Donepezil* (Donepezil*) 10 Mg Tablet, 10 MG PO DAILY, #30 TAB 02/11/19 Atorvastatin Calcium (Atorvastatin Calcium) 10 Mg Tablet, 10 MG PO QHS, #30 TAB 02/11/19 Aspirin* (Aspirin* EC) 81 Mg Tablet.dr, 81 MG PO DAILY, TAB 02/11/19 Discontinued Reported Medications Atorvastatin Calcium (Atorvastatin Calcium) 10 Mg Tablet, 10 MG PO DAILY, #30 TAB 06/06/17 Donepezil* (Donepezil*) 10 Mg Tablet, 10 MG PO DAILY, #30 TAB 06/06/17 Aspirin (Gaetano Child) 81 Mg Chew, daily 02/22/13 Discontinued Scripts [place], Insulin Disposable (Sandra Pen Needle) 1 Each Dis.needle, EACH ACHS H, #120 Prov:ADAM TARANGO MD 11/17/18 Insulin Glargine,Hum.rec.anlog (Basaglar Kwikpen U-100) 100 Unit/1 Ml Insuln.pen, 25 UNIT SC QHS for 30 Days, #10 EA 6 Refills Prov:ADAM TARANGO MD 11/17/18 Allergies Allergies: Coded Allergies: No Known Allergy (Unverified , 02/11/19) PMhx/Soc History of Surgery: Yes (right great toe amputation) Anesthesia Reaction: No Hx Neurological Disorder: Yes (seizures- kepra, phenytoin) Hx Respiratory Disorders: No Hx Cardiac Disorders: No (HTN) Hx Psychiatric Problems: No Hx Miscellaneous Medical Probl: Yes (DM) Hx Alcohol Use: No Hx Substance Use: No Hx Tobacco Use: No Smoking Status: Never smoker FmHx Family History: No coronary disease Physical Exam Vitals Vital Signs Date Temp Pulse Resp B/P (MAP) Pulse Ox O2 O2 Flow FiO2 Time Delivery Rate 02/11/19 98.3 106 16 120/63 84 13:33 (82) Physical Exam Const: Well-developed, well-nourished Head: Atraumatic, normocephalic Eyes: Normal Conjunctiva, PERRLA, EOMI, normal sclera, no nystagmus ENT: Normal External Ears, Nose and Mouth, moist mucus membranes. Neck: Patient is in a c-collar with some mild mid C-spine tenderness.] Resp: Clear to auscultation bilaterally, no wheezing, rhonchi, rales Cardio: Regular rate and rhythm, no murmurs, S1 S2 present Abd: Soft, non tender x 4, non distended. Normal bowel sounds, no guarding or rebound, no pulsitile abdominal masses or bruits Skin: No petechiae or rashes, no ecchymosis , no maculopapular rash Back: No midline or flank tenderness Ext: No cyanosis, or edema, FROM x 4, normal inspection, neuro vascularly intact x 4 Neur: Awake and alert, STR 5/5 x 4, sensation intact x 4, no focal findi ngs, cerebellum intact Psych: Normal Mood and Affect Result Diagram: 02/11/19 1333 02/11/19 1333 Results 24 hrs Laboratory Tests Test 02/11/19 13:33 White Blood Count 9.5 10^3/ul Red Blood Count 4.23 10^6/ul Hemoglobin 13.0 g/dl Hematocrit 38.2 % Mean Corpuscular Volume 90.3 fl Mean Corpuscular Hemoglobin 30.7 pg Mean Corpuscular Hemoglobin Concent 34.0 g/dl Red Cell Distribution Width 12.2 % Platelet Count 218 10^3/UL Mean Platelet Volume 9.4 fl Immature Granulocytes % 0.400 % Neutrophils % 78.9 % Lymphocytes % 14.7 % Monocytes % 5.5 % Eosinophils % 0.2 % Basophils % 0.3 % Nucleated Red Blood Cells % 0.0 /100WBC Immature Granulocytes # 0.040 10^3/ul Neutrophils # 7.5 10^3/ul Lymphocytes # 1.4 10^3/ul Monocytes # 0.5 10^3/ul Eosinophils # 0.0 10^3/ul Basophils # 0.0 10^3/ul Nucleated Red Blood Cells # 0.0 10^3/ul Sodium Level 142 mmol/L Potassium Level 4.5 mmol/L Chloride Level 108 mmol/L Carbon Dioxide Level 15 mmol/L Anion Gap 19 Blood Urea Nitrogen 16 mg/dl Creatinine 0.81 mg/dl Est Glomerular Filtrat Rate mL/min > 60 mL/min Glucose Level 312 mg/dl Calcium Level 9.2 mg/dl Total Bilirubin 0.3 mg/dl Direct Bilirubin 0.00 mg/dl Indirect Bilirubin 0.3 mg/dl Aspartate Amino Transf (AST/SGOT) 22 IU/L Alanine Aminotransferase (ALT/SGPT) 18 IU/L Alkaline Phosphatase 151 IU/L Troponin I < 0.012 ng/ml Total Protein 7.0 g/dl Albumin 3.8 g/dl Globulin 3.20 g/dl Albumin/Globulin Ratio 1.18 Current Medications Medications Dose Sig/Tigre Start Time Status Last (Trade) Ordered Route PRN Stop Time Admin Dose Reason Admin Sodium 1,000 ml @ Q1H STAT 02/11/19 DC 02/11/19 Chloride 1,000 mls/hr IV 13:29 02/11/19 13:49 14:28 100 ml @ ONCE STAT 02/11/19 DC 02/11/19 Levetiracetam 400 mls/hr IVPB 13:29 02/11/19 13:48 13:43 0.5 mg ONCE STAT 02/11/19 DC Hydromorphone IV 13:29 02/11/19 HCl 13:30 (Dilaudid) Ondansetron 4 mg ONCE STAT 02/11/19 DC 02/11/19 HCl (Zofran IV 13:29 02/11/19 13:49 Inj) 13:30 Procedures/MDM Patient: SALEEM TOVAR : 1960 Age: 58 Sex: M MR #: [id number] DOS: 02/11/19 1329 Ordering MD: DAMARIS CLARKE DO Location: E/R Room/Bed: PROCEDURE: CT Brain without contrast. CLINICAL INDICATION: Seizure. TECHNIQUE: A CT of the brain without contrast was performed utilizing axial sections from the skull base through the vertex. One or more the following does reduction techniques were utilized: Automated exposure control, adjustment of the mA/ or kV according to patient's size, or use of iterative reconstruction technique. Total exam CTDIvol is 37 MGy and DLP is 634 mGy-cm. DICOM images are available. COMPARISON: Brain CT 09/19/2017. FINDINGS: The ventricles and sulci are mildly prominent indicative of volume loss. There is no intracranial hemorrhage, mass effect or midline shift. No abnormal intra- axial or extra-axial fluid collections are seen. The gayle/white matter differentiation is preserved. There is asymmetric mild to moderate right hippocampal volume loss with associated prominent temporal horn of the right lateral ventricle. There are mild foci of hypoattenuation in the white matter, which are nonspecific in etiology but likely reflect chronic small vessel ischemic catie nges. There are mild intracranial vascular calcifications consistent with atherosclerosis. The visualized paranasal sinuses demonstrate mild scattered mucosal thickening. Partial opacification of the left mastoid air cells and middle ear cavity are noted. The right mastoid air cells are essentially clear. IMPRESSION: 1. No acute intracranial hemorrhage, transcortical infarction or mass effect. 2. Mild intracranial atherosclerosis and chronic small vessel ischemic changes. 3. Mild generalized cerebral volume loss. 4. Partial opacification of the left mastoid air cells and middle ear cavity are noted. 5. Asymmetric mild to moderate right hippocampal volume loss. Consider follow- up brain MRI with seizure protocol to evaluate for possible mesial temporal sclerosis. RPTAT: HFN .Tigist Hernandez MD, MD Date Time Electronically viewed and signed by .Tigist Hernandez MD, MD on 02/11/2019 15:27 .N/ CC: DAMARIS CLARKE DO [id number] PROCEDURE: CT cervical spine without contrast CLINICAL INDICATION: Trauma. Neck pain. Seizures. TECHNIQUE: CT scan of the cervical spine was performed on a multidetector high-resolution CT scanner. No IV contrast was administered. Coronal and sagittal reformatted images were obtained from the axial source images. Images were reviewed on a high-resolution PACS workstation. DICOM images are available. CTDI = 22.19 mGy and the DLP = 462.98 mGy-cm. One or more of the following dose reduction techniques were used: - Automated exposure control. - Adjustment of the mA and/or kV according to patient size. - Use of iterative reconstruction technique. COMPARISON: None available FINDINGS: There is straightening of the alignment of the cervical spine with loss of the normal cervical lordosis. Alignment remains intact. No acute fracture or dislocation is seen. The vertebral body heights and intervertebral disk heights are all well preserved. Posterior elements structures are equally unremarkable. The paraspinous soft tissues are unremarkable. No mass, hematoma, or other soft tissue abnormality is seen. 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 Carotid artery atherosclerotic vascular calcifications. IMPRESSION: 1. Advanced degenerative enthesopathy of the cervical spine. 2. No acute fracture or dislocation is identified. 3. Intact alignment with preservation of the normal cervical lordosis. 4. Atherosclerotic vascular calcifications. RPTAT: HMJB .Magdi Cobb MD, MD Date Time Electronically viewed and signed by .Magdi Cobb MD, MD on 02/11/2019 15:05 .B/ CC: DAMARIS CLARKE DO [id number] Patient's CAT scan of neck and brain are unremarkable as is his blood. Patient was loaded with IV Keppra will discharge him home with prescription for Keppra Departure Diagnosis: Primary Impression: Seizure disorder Condition: Stable DAMARIS CLARKE DO Feb 11, 2019 14:08
[2019-02-11] MEDS ORDERED: LEVE100018 PO (15:40)
[2019-02-11 17:46] VITALS: BP 111/69; PULSE 76; RESP 16
== END 2019-02-11 17:48 | disposition home or self-care (01) ==
LOC: E/R 13:12
DX: G40.909 Epilepsy, unspecified, not intractable, without status epilepticus (principal); I10 Essential (primary) hypertension; E11.9 Type 2 diabetes mellitus without complications; Z79.4 Long term (current) use of insulin; Z79.82 Long term (current) use of aspirin
CPT/HCPCS: 36415; 70450; 72125; 80053; 84484; 85025; 96374; 96375; 99285; J1953; J7030

== ENCOUNTER 2019-09-04 02:59 | Emergency (ER) | payer MEDICARE, OTHER ==
[~2019-09-04] VITALS: Ht 160 cm; Wt 67.3 kg
[~2019-09-04 02:59] MED LIST changes: -ASPI-676; -DONE10TA7 PO; +IBUP-1542 PO; -LEVE-5 PO; +LEVE100018 PO; +MTF1000T PO; -NEED-135 MC; -PHEN100C PO
[2019-09-04 03:07] VITALS: Ht 160 cm; Wt 67.3 kg
[2019-09-04] MEDS ORDERED: KETOROLAC 15 MG INJ IV STA (03:36)
[2019-09-04] MEDS ORDERED: ONDANSETRON 4 MG INJ IV STA (03:36)
[2019-09-04] MEDS ORDERED: ALPRAZOLAM 0.25 MG TAB PO ONE (04:00)
[2019-09-04] MEDS ORDERED: SOD CHLORIDE 0.9% 1,000 ML IV STA (04:39)
[2019-09-04 06:11] VITALS: BP 92/68; PULSE 78; RESP 18
== END 2019-09-04 06:13 | disposition home or self-care (01) ==
LOC: E/R 02:59
DX: E11.65 Type 2 diabetes mellitus with hyperglycemia (principal); R42 Dizziness and giddiness; R11.10 Vomiting, unspecified; Z79.4 Long term (current) use of insulin; Z79.82 Long term (current) use of aspirin
CPT/HCPCS: 71045; 80053; 83690; 83880; 84484; 85025; 93005; J1885; J2405; J7030; 36415; 96374; 96375

== ENCOUNTER 2019-09-09 03:55 | Emergency (ER) | payer MEDICARE, OTHER ==
[~2019-09-09] VITALS: Ht 154.9 cm; Wt 68.0 kg
[2019-09-09 03:59] VITALS: Ht 154.9 cm; Wt 68.0 kg
[2019-09-09] MEDS ORDERED: SOD CHLORIDE 0.9% 2,000 ML IV STA (04:09)
[2019-09-09 09:54] VITALS: BP 130/76; PULSE 76; RESP 18
== END 2019-09-09 09:56 | disposition home or self-care (01) ==
LOC: E/R 03:55
DX: E11.65 Type 2 diabetes mellitus with hyperglycemia (principal); I10 Essential (primary) hypertension; Z79.4 Long term (current) use of insulin; Z79.82 Long term (current) use of aspirin
CPT/HCPCS: 71045; 80053; 81001; 82962; 84484; 85025; J7030; 36415